=== PATIENT | male | born 1940 | race Caucasian/White ===

== ENCOUNTER → 2022-02-12 | Outpatient (CLI) | payer MEDICARE, SELFPAY ==
--- NOTE | 2022-02-12 08:00 | PROSBIL_PTH ---
PATIENT: RIMA SNYDER LOC: [facility] U#:[id number] AGE/SX: 81/M ROOM: RE02/12/[address]: Dr. Damon Garrett MD : 1940 BED: DIS: 02/12/2022 SPEC #: [id number] RECD: 02/12/22 16:25 STATUS: MIRIAM DEMETRA #: [id number] MIKY: 02/12/22 08:[address]: Damon Garrett DEPT: SURGICAL PATHOLOGY RECD BY: Jacquelyn Winkler ENTERED: 02/13/22 08:20 SP TYPE: PROST BX LY DR: Dr. Ramiro Rangel MD Tissues: A - PROSTATE RIGHT B - PROSTATE RIGHT C - PROSTATE RIGHT D - PROSTATE LEFT E - PROSTATE LEFT F - PROSTATE LEFT Procedures: PROSTATE BX HEADER OPERATION: Prostate biopsy PRE-OP DIAGNOSIS: Elevated PSA TISSUE SUBMITTED: A - Right apex, B - Right mid, C - Right base, D - Left apex, E - Left mid, F - Left base MICROSCOPIC DIAGNOSIS A. Right prostate, apex, core biopsy: Prostatic adenocarcinoma. Radha grade: 3+3=6 Number of cores involved: 1/1 Proportion of tissue involved: ~50% Perineural invasion: Present. Greatest tumor length: 0.5 cm B. Right prostate, mid, core biopsy: Prostatic adenocarcinoma. [place] grade: 3+3=6 Number of cores involved: 1/1 Proportion of tissue involved: ~70% Perineural invasion: Present. Greatest tumor length: 0.7 cm Chronic inflammation. C. Right prostate, base, core biopsy: Prostatic adenocarcinoma. [place] grade: 3+3=6 Number of cores involved: 1/1 Proportion of tissue involved: ~40% Perineural invasion: Present. Greatest tumor length: 0.5 cm Focal high-grade prostatic intraepithelial neoplasia (HGPIN). D. Left prostate, apex, core biopsy: Prostatic adenocarcinoma. [place] grade: 5+3=8. See comment. Number of cores involved: 1/1 Proportion of tissue involved: >95% Perineural invasion: Present. Greatest tumor length: 1.5 cm E. Left prostate, mid, core biopsy: Prostatic adenocarcinoma. Radha grade: 3+4=7 Number of cores involved: 1/1 Proportion of tissue involved: ~90% Perineural invasion: Suspected. Greatest tumor length: 1.3 cm, discontinuous Focal chronic inflammation. F. Left prostate, base, core biopsy: Prostatic adenocarcinoma. [place] grade: 3+3=6 Number of cores involved: 1/1 Proportion of tissue involved: ~25% Perineural invasion: Not identified. Greatest tumor length: 0.3 cm Chronic inflammation. SJ:mau 02/16/2022 COMMENT D. Tertiary pattern 4 is also noted. Case has been reviewed in consultation with Dr. Lewis who concurs with the above diagnosis. IDC:[email or web address] MICROSCOPIC DESCRIPTION Slides are reviewed. GROSS DESCRIPTION A - Received is one container designated prostate, right apex. The specimen consists of one elongated fragment of light forman-white soft tissue measuring 1 cm in length and 0.1 cm in diameter. The specimen is totally submitted in one cassette. B - Received is one container designated prostate, right mid. The specimen consists of one elongated fragment of light forman-white soft tissue measuring 1.1 cm in length and 0.1 cm in diameter. The specimen is totally submitted in one cassette. C - Received is one container designated prostate, right base. The specimen consists of one elongated fragments of light forman-white soft tissue measuring 1.5 cm in length and 0.1 cm in diameter. The specimen is totally submitted in one cassette. D - Received is one container designated prostate, left apex. The specimen consists of one elongated fragments of light forman-white soft tissue measuring 1.8 cm in length and 0.1 cm in diameter. The specimen is totally submitted in one cassette. E - Received is one container designated prostate, left mid. The specimen consists of one elongated fragment of light forman-white soft tissue measuring 1.8 cm in length and 0.1 cm in diameter. The specimen is totally submitted in one cassette. F - Received is one container designated prostate, left base. The specimen consists of one elongated fragment of light forman-white soft tissue measuring 2 cm in length and 0.1 cm in diameter. The specimen is totally submitted in one cassette. / SJ:rg 02/13/2022 TC:0 [facility]: [id number]
== END | disposition home or self-care (01) ==
LOC: LABSPEC 16:50
PROVIDERS: PCP Family Medicine; Visit Provider Urology
DX: R97.20 Elevated prostate specific antigen [PSA] (principal)
CPT/HCPCS: 88305; G0416

== ENCOUNTER → 2022-03-12 | Outpatient (CLI) | payer MEDICARE, SELFPAY ==
--- NOTE | 2022-03-12 09:22 | NM_ITS ---
CLINICAL: Male, 81 years old. Initial staging for high risk prostate cancer WHOLE BODY NUCLEAR BONE SCAN TECHNIQUE: Following the IV administration of 26.9 mCi of Tc MDP, whole body bone imaging was performed with a gamma camera following a three hour delay. COMPARISON STUDIES : NM - None. CR - Not available for review at this time. CT - Not available for review at this time. MR - Not available for review at this time. US - Not available for review at this time. FINDINGS: Mild increased radiopharmaceutical uptake at the level of the thoracic spine suggestive of a degenerative changes. Mild increased uptake is also seen at the level of both knee joints suggestive of degenerative change. NM/Bone Scan Whole Body IMPRESSION: No evidence of bony metastasis. Findings suggestive of degenerative changes involving the thoracic vertebrae as well as both knee joints. Electronically Signed: Roberto Callejas MD at 14:39 EDT ,
== END | disposition home or self-care (01) ==
PROVIDERS: Referring Provider Student in an Organized Health Care Education/Training Program; Visit Provider Student in an Organized Health Care Education/Training Program
DX: C61 Malignant neoplasm of prostate (principal)
CPT/HCPCS: 78306; A9503

== ENCOUNTER → 2022-03-13 | Outpatient (CLI) | payer MEDICARE, SELFPAY ==
--- NOTE | 2022-03-13 13:28 | CT_ITS ---
STUDY: CT ABDOMEN AND PELVIS WITH CONTRAST REASON FOR EXAM: Male, 81 years old. Initial staging for high risk prostate cancer RADIATION DOSAGE (If Supplied By Facility): CTDIvol = ( 22.51 ) mGy, DLP = ( 2276.10 ) mGycm TECHNIQUE: Transaxial images were obtained from the dome of the diaphragm to the symphysis pubis with oral contrast. Oral and amp; IV Readi-CAT and amp; 100mL Isovue-300 was administered. Sagittal and coronal images were reconstructed. Individualized dose optimization techniques were used for this CT. COMPARISON: None. FINDINGS: The visualized lung bases are unremarkable. Coronary artery calcification. There is decreased attenuation of the liver consistent with steatosis. There is a 1 cm cyst in the anterior right lobe of the liver. Normal gallbladder and extrahepatic biliary system. Normal spleen. Normal pancreas. Normal bilateral adrenal glands. There is a 5.5 cm x 4.5 cm cyst in the mid inferior pole of the right kidney. Minimal soft tissue density seen along its posterior dependent portion. Subcentimeters cyst in the anterior aspect of the right kidney. Normal left kidney. Normal visualized stomach. Normal small intestine. There are multiple colonic diverticula consistent with diverticulosis. The appendix is visualized and appears normal. There is diffuse atherosclerotic calcification of the abdominal aorta and its major visceral branches, without a demonstrated aneurysm. Normal inferior vena cava. Normal retroperitoneum. Mild degree of diffuse bladder wall thickening. There is enlargement of the prostate gland. The prostate measures 4.7 cm x 4.3 cm. This causes indentation of the bladder base. Normal abdominal wall. There are diffuse degenerative changes of the visualized lumbar spine. Degenerative changes of the sacroiliac joints. CT/Abdomen/Pelvis WITH Contrast IMPRESSION: Diffuse fatty liver. Hepatic cyst. Right renal cysts. Prostatic enlargement with indentation at the bladder base. Electronically Signed: Roberto Callejas MD at 13:55 EDT ,
[2022-03-13 13:41] LABS: CREATININE FINGERSTICK < 0.9 mg/dL (0.70-1.30); EGFR FINGERSTICK > 60.0000 mL/min (>60)
== END | disposition home or self-care (01) ==
LOC: CT 12:53
PROVIDERS: Referring Provider Student in an Organized Health Care Education/Training Program; Visit Provider Student in an Organized Health Care Education/Training Program
DX: Z01.812 Encounter for preprocedural laboratory examination (principal); C61 Malignant neoplasm of prostate
CPT/HCPCS: 74177; Q9967; A4216

== ENCOUNTER 2022-04-10 10:12 | Day surgery (SDC) | payer MEDICARE, SELFPAY ==
[2022-04-10 10:40] VITALS: BP 166/64; PULSE 66; RESP 16; TEMP 36.4; O2SAT 100; BMI 27.7
[2022-04-10] MEDS: Lactated Ringers 1,000 ML 15 ML IV (10:47)
[2022-04-10] MEDS: Cefazolin 2 GM in 0.9% Normal Saline 100 ML IV (11:47)
--- NOTE | 2022-04-10 12:15 | PCM.HP.STD ---
HPI - General General Date of Service: 04/10/22 Chief Complaint: Prostate cancer HPI Narrative RIMA SNYDER, is a 81 M who presents for placement of spacer gel and gold markers for treatment of prostate cancer PFSH Medical History (Updated 04/06/22 @ 12:24 by Mary Anne Lucia) Alcohol use Back injury Former smoker Heartburn High cholesterol Lead poisoning Prostate disease Wears dentures Home Medications calcium carbonate 600 mg-vitamin D3 12.5 mcg (500 unit) capsule (Calcium 600 with Vitamin D3) 3 cap PO DAILY supplement 03/05/22 [History Last Taken Unknown] ciprofloxacin HCl 500 mg tablet 2 tab PO DAILY preOp 04/06/22 [History Last Taken Unknown] ciprofloxacin HCl 500 mg tablet (Cipro) 500 mg PO BID #14 tabs 04/10/22 [Rx Last Taken Unknown] Allergy/AdvReac Type Severity Reaction Status Date / Time No Known Allergies Allergy Verified 04/10/22 10:45 Surgical History (Updated 04/06/22 @ 12:24 by Mary Anne Lucia) H/O removal of cyst History of cataract extraction History of colonoscopy History of removal of cyst Social History (Updated 03/05/22 @ 15:11 by Ingrid Abraham) housing: house current occupational status: retired pets and animals: Yes pets and animals: dog(s) Smoking Status: Former smoker pack-years: 1 Tobacco: How many years used: 15 alcohol intake: current alcohol intake frequency: 3 or more drinks per day Alcohol type: beer and hard liquor Vital Signs Vital Signs Vital Signs: 04/10/22 10:40 04/10/22 10:40 Temperature 97.5 F L Temperature Source Temporal Pulse Rate 66 Respiratory Rate 16 Respiratory Pattern Normal Blood Pressure 166/64 H Blood Pressure Mean 98 Blood Pressure Source Monitor Blood Pressure Position Semi-Fowlers Blood Pressure Location Right Arm Pulse Ox 100 Oxygen Delivery Method Room Air Weight Weight: 95.254 kg Body Mass Index (BMI) 27.7
--- NOTE | 2022-04-10 12:16 | OP.PCM_ITS ---
Report of Operation Date of Procedure: 04/10/22 Pre-Operative Diagnosis: Prostate cancer Post-Operative Diagnosis: Same Surgery/Procedure Performed:: Spacer organ at risk gel matrix, and lane marker installer placement. Description of Surgical Findings:: Patient was taken back to the operating room after smooth induction of anesthesia he was placed supine on the table. The genitals and perineum were prepped and draped in usual sterile fashion. I then introduced a biplanar ultrasound probe into the rectum and performed ultrasonography and identified the Denonvilliers' fascia the prostate mid base and apex and seminal vesicles. The spacer gel mix was then prepared on the back table per manufactures instruction. Under ultrasound guidance in the midline perineum a bevel needle down we advanced through the perineum below the prostate into the space of Denonvilliers' fascia. This space which could be identified by ultrasound with a bright white layer between the prostate and the rectum. I then injected a puff of normal saline to identify the space further. After I confirmed that the needle was in the correct space in the mid prostate and the space of Denonvilliers' fascia between the rectum and the prostate. Then over the course of 15 seconds the gel matrix was injected slowly there was nice separation between the prostate and the rectum at the gel matrix was injected. The position of the gel matrix was confirmed by ultrasound. Then the injection needle was removed intact. The penis and testicles were prepped and draped in usual sterile fashion, ultrasound probe was placed into the rectum and biplanar ultrasound was pe rformed on the prostate. Identified the base mid and apex of the prostate identified the transition zone prostate. Then using a needle the first lane marker installer was placed into the right base of the prostate, the second lane marker installer was placed in the left base of the prostate, and the third core marker was placed in the right apex of the prostate after all 3 markers were placed the placement of the markers were confirmed by ultrasonographyPatient's perineum was cleaned patient was taken out of stirrups and then taken back to the PACU in good condition. . Surgeon: Damon Garrett Type of Anesthesia: General
--- NOTE | 2022-04-10 12:16 | DCINST_ITS ---
Discharge Instructions Diet Discharge Diet: No restrictions and Light diet - advance as tolerated Activity Discharge Activity: Return to Normal Activity and No Restrictions Follow Up Care Test Results: Test results from this visit will be discussed in further detail at your follow- up appointment, if applicable. Discharge Plan Admission Primary Reason for Your Visit: placement of markers and spacer gel Attending Provider: Damon Garrett Primary Care Provider: Ramiro Rangel Discharge Orders/Prescriptions Prescriptions: New ciprofloxacin HCl [Cipro] 500 mg tablet 500 mg PO BID Qty: 14 0RF No Action calcium carbonate-vitamin D3 [Calcium 600 with Vitamin D3] 600 mg-12.5 mcg (500 unit) capsule 3 cap PO DAILY ciprofloxacin HCl 500 mg tablet 2 tab PO DAILY Label Comments: take 1 tablet by mouth twice a day Referrals / Follow Up: Ramiro Rangel MD [Primary Care Provider] - Damon Garrett MD [Med Staff - Active Staff] - Disposition Disposition (needs filled in before D/C Order can be placed): Home, Self Care
[2022-04-10 12:21] VITALS: BP 136/76; BP 166/64; PULSE 72; RESP 16; TEMP 36.2; O2SAT 96
[2022-04-10 12:30] VITALS: BP 144/72; BP 166/64; PULSE 63; RESP 16; O2SAT 97
[2022-04-10 12:45] VITALS: BP 130/62; BP 166/64; PULSE 55; RESP 16; O2SAT 96
[2022-04-10 13:00] VITALS: BP 132/66; BP 166/64; PULSE 59; RESP 16; TEMP 36.6; O2SAT 97
[2022-04-10 13:48] VITALS: BP 166/64
== END 2022-04-10 13:52 | disposition home or self-care (01) ==
LOC: SDC 10:19 → AC 10:21
PROVIDERS: PCP Family Medicine; Visit Provider Urology
PROC: (CPT 55874; principal; 2022-04-10 12:05)
DX: C61 Malignant neoplasm of prostate (principal); N40.1 Benign prostatic hyperplasia with lower urinary tract symptoms; E78.00 Pure hypercholesterolemia, unspecified; F32.A Depression, unspecified; F41.9 Anxiety disorder, unspecified; Z79.899 Other long term (current) drug therapy; Z87.891 Personal history of nicotine dependence
CPT/HCPCS: 55874; 55876; 00902; J7120; J2405

== ENCOUNTER → 2022-04-16 | Outpatient (CLI) | payer MEDICARE, SELFPAY ==
--- NOTE | 2022-04-16 12:25 | MRI_ITS ---
STUDY: MR PELVIS WITH AND WITHOUT CONTRAST (PROSTATE) REASON FOR EXAM: Male, 81 years old. High risk prostate cancer, radiation planning TECHNIQUE: Standardized multiparametric prostate MRI with T1, T2, DWI/ADC sequences were obtained in 3 orthogonal planes, and dynamic contrast enhancement sequences. ml of 20 cc dotarem contrast material was administered intravenously for the contrast portion of the examination. . COMPARISON: None. FINDINGS: The prostate volume measures 48 mm3. The contours of the prostate gland are lobulated. There is mass effect on the bladder base. The transition zone is heterogenous. PI-RADS DWI score 3 - Focal mildly hypointense on ADC and isointense/mildly hyperintense on high b-value DWI. PI-RADS T2W score 4 - Non-circumscribed, homogeneous, moderately hypointense, and <1.5 cm in greatest dimension in the right prostate base. Contrast enhancement no early or contemporaneous enhancement; or diffuse multifocal enhancement NOT corresponding to a focal finding on T2W and/or DWI or focal ehancement responding to a lesion demonstrating features of BPH onT2WI (including features of extruded BPH in the PZ). The peripheral zone is homogenous. PI-RADS DWI score 2 - Linear/wedge shaped hypointense on ADC and/or linear/wedge shaped hyperintense on high b-value DWI. PI-RADS T2W score 2 - Linear, wedge-shaped, or diffuse mild hypointensity, usually with indistinct margin. Contrast enhancement no early or contemporaneous enhancement; or diffuse multifocal enhancement NOT corresponding to a focal finding on T2W and/or DWI or focal enhancement responding to a lesion demonstrating features of BPH onT2WI (including features of extruded BPH in the PZ). The seminal vesicles demonstrate normal margins and T2 signal pattern. No mass lesion or invasion depicted. The rectoprostatic angles are normal. Trabeculated urinary bladder wall. The vascular structures of the are normal. The visualized hollow viscus structures are normal. No bone marrow edema or mass lesion depicted. MRI/Pelvis W/WO Contrast IMPRESSION: 1. PIRADS v2.1 2019 -- 4 - High (clinically significant cancer is likely). 2. No extraprostatic mass or pelvic adenopathy. Electronically Signed: Gilbert Cheatham MD (Brooks) at 16:25 EDT Reading Location ID and State: [facility] / [place] , Service support ,
[2022-04-16 13:05] LABS: CREATININE FINGERSTICK 0.9 mg/dL (0.70-1.30); EGFR FINGERSTICK > 60.0000 mL/min (>60)
== END | disposition home or self-care (01) ==
PROVIDERS: Referring Provider Student in an Organized Health Care Education/Training Program; Visit Provider Student in an Organized Health Care Education/Training Program
DX: C61 Malignant neoplasm of prostate (principal)
CPT/HCPCS: 72197; 77014; 77290; A9575

== ENCOUNTER 2022-09-17 09:51 | Day surgery (SDC) | payer MEDICARE, SELFPAY ==
[2022-09-17] VITALS (7 sets, daily range): BP systolic 97–164; BP diastolic 53–83; PULSE 70–95; RESP 14–18; TEMP 36.1–36.9; O2SAT 94–100; BMI 28.0
[2022-09-17] MEDS: Lactated Ringers 1,000 ML 15 ML IV (10:32)
--- NOTE | 2022-09-17 10:45 | PCM.HP.BLA ---
History and Physical Date of Admission: 09/17/22 RIMA SNYDER, is a 82 M who presents to the office today for referred by radiation oncologist Dr Benjamin for rectal bleeding that occurred during his radiation therapy for high risk prostate cancer. He completed radiation therapy in early May 2022. He had diarrhea during the therapy, and some bright red blood per rectum. He report hx of external hemorrhoid that disappeared after placement of spacer organ at risk gel matrix and gold markers in 03/2022. Pt reports the diarrhea has resolved, and he hasn't had any further blood per rectum. No melena. No constipation. His last colonoscopy 20+ yrs ago, recalls having a polyp. Denies nausea, vomiting, dysphagia, heartburn, acid reflux, abd pain. ROS Const Constitutional: No fatigue ENT ENT: No difficulty swallowing Gastro GI: Positive for diarrhea and heartburn; No abdominal pain, belching, bloating, change in bowel habits, change in stool character, coffee ground emesis, constipation, cramping, difficulty swallowing, feeling full early, excessive flatus, incontinent of stools, Vomiting blood/hematemesis, Blood in stool, loose stools, Black,tarry stools, nausea/dyspepsia, pain with swallowing, vomiting or other Musc Musculoskeletal: Positive for back pain and Arthritis; No joint pain Skin Skin: No yellowing of the eye or itchy eyes Psych Psychiatric: Positive for anxiety and No depression Endo Endocrine: No fatigue Aller/Imm Allergy/Immunologic: No itchy eyes Theodore/Lymp Hematologic/Lymphatic: No easy bleeding or easy bruising Exam Const General: cooperative and comfortable Nutritional Appearance: overweight Orientation: alert, awake and oriented x3 Eyes Sclera: sclerae normal Resp Effort & Inspection: normal respiratory effort GI Inspection: obesity Palpation: soft, no masses and nontender Quality Reporting Tobacco Screening ([facility] 138) Smoking Status: Former smoker Assessment and Plan Assessment and Plan (1) Blood in stool: ?Status:?Acute ?Plan: 82 yr old male with hx of blood per rectum while having diarrhea during radiation therapy for high risk prostate cancer. He completed XRT, diarrhea and blood per rectum have resolved. He remains on ADT. We will schedule him for colonoscopy with Dr Bro w/ office f/u 2 wks later. I have examined the patient and the H&P has been reviewed. There are no clinical changes since date of exam.
--- NOTE | 2022-09-17 11:00 | EGD_PTH ---
PATIENT: RIMA SNYDER LOC: EN U#:[id number] AGE/SX: 82/M ROOM: RE09/17/[address]: Dr. Orestes Bro DO : 1940 BED: DIS: 09/17/2022 SPEC #: [id number] RECD: 09/17/22 15:17 STATUS: MIRIAM RESuman #: [id number] MIKY: 09/17/22 11:[address]: Orestes Bro DEPT: SURGICAL PATHOLOGY RECD BY: Jacquelyn Winkler ENTERED: 09/18/22 09:35 SP TYPE: EGD BIOPSY OT DR: Dr. Neal Mariscal DO Tissues: A - Duodenum, NOS B - Esophagus, NOS Procedures: Special Stain Group II Surgery Specimen Level IV Alcian Blue/PAS (control) HEADER OPERATION: [place] [place] PRE-OP DIAGNOSIS: Blood in stool TISSUE SUBMITTED: A ? Duodenal polyp biopsy, B ? Distal esophagus biopsy MICROSCOPIC DIAGNOSIS A. Duodenal polyp, biopsy: Polypoid gastric metaplasia. Minimal chronic inflammation. B. Distal esophagus, biopsy: Gastroesophageal junctional mucosa with mild chronic inflammation. No evidence of goblet cell metaplasia. See comment. AM:mau 09/21/2022 COMMENT B. Alcian blue/PAS stain with matched control supports the above diagnosis. MICROSCOPIC DESCRIPTION Slides are reviewed. GROSS DESCRIPTION A - Received in fixative is one container labeled with the patient's name and designated duodenal polyp biopsy. The specimen consists of two irregular fragments of light forman soft tissue that in aggregate measure 0.9 x 0.5 x 0.1 cm. The specimen is totally submitted in one cassette. B - Received in fixative is one container labeled with the patient's name and designated distal esophagus biopsy. The specimen consists of multiple irregular fragments of light forman soft tissue that in aggregate measure 1 x 0.5 x 0.1 cm. The specimen is totally submitted in one cassette. / SJ:mau 09/18/2022 TC:3 CPT: 22568 x2, 49421
--- NOTE | 2022-09-17 11:24 | OP.EGD_ITS ---
Patient Name: Abraham Grace Procedure Date: 09/17/2022 10:46 AM Date of : 1940 Age: 82 Procedure: Upper GI endoscopy Indications: Acute post hemorrhagic anemia Providers: Orestes Bro DO Medicines: Monitored Anesthesia Care Patient Profile: This is an 82 year old male. Refer to note in patient chart for documentation of history and physical. Patient has symptoms of acute heartburn. Complications: No immediate complications. Procedure: Pre-Anesthesia Assessment: - Prior to the procedure, a History and Physical was performed, and patient medications and allergies were reviewed. The patient is competent. The risks and benefits of the procedure and the sedation options and risks were discussed with the patient. All questions were answered and informed consent was obtained. Patient identification and proposed procedure were verified by the physician in the pre-procedure area. Mental Status Examination: alert and oriented. Airway Examination: normal oropharyngeal airway and neck mobility. Respiratory Examination: clear to auscultation. CV Examination: normal. Prophylactic Antibiotics: The patient does not require prophylactic antibiotics. Prior Anticoagulants: The patient has taken no previous anticoagulant or antiplatelet agents. ASA Grade Assessment: II - A patient with mild systemic disease. After reviewing the risks and benefits, the patient was deemed in satisfactory condition to undergo the procedure. The anesthesia plan was to use monitored anesthesia care (MAC). Immediately prior to administration of medications, the patient was re-assessed for adequacy to receive sedatives. The heart rate, respiratory rate, oxygen saturations, blood pressure, adequacy of pulmonary ventilation, and response to care were monitored throughout the procedure. The physical status of the patient was re-assessed after the procedure. After obtaining informed consent, the endoscope was passed under direct vision. Throughout the procedure, the patient's blood pressure, pulse, and oxygen saturations were monitored continuously. The pediatric colonoscope was introduced through the mouth, and advanced to the second part of duodenum. The upper GI endoscopy was accomplished without difficulty. The patient tolerated the procedure well. Scope In: 10:58:17 AM Scope Out: 11:02:29 AM Total Procedure Duration Time 0 hours 4 minutes 12 seconds Findings: LA Grade A (one or more mucosal breaks less than 5 mm, not extending between tops of 2 mucosal folds) esophagitis with no bleeding was found 35 to 37 cm from the incisors. Biopsies were taken with a cold forceps for histology. Biopsies were taken with a cold forceps for histology. Verification of patient identification for the specimen was done. Estimated blood loss was minimal. A moderate Schatzki ring was found in the lower third of the esophagus. A guidewire was placed and the scope was withdrawn. Dilation was performed with a Savary dilator with no resistance at 45 Fr. The dilation site was examined and showed moderate improvement in luminal narrowing. Estimated blood loss was minimal. A medium-sized hiatal hernia was present. No gross lesions were noted in the stomach. The cardia and gastric fundus were normal on retroflexion. A single 5 mm sessile polyp was found in the duodenal bulb. The polyp was removed with a cold snare. Resection and retrieval were complete. Verification of patient identification for the specimen was done. Estimated blood loss was minimal. Impression: - LA Grade A reflux esophagitis. Biopsied. - Moderate Schatzki ring. Dilated. - Medium-sized hiatal hernia. - No gross lesions in the stomach. - A single duodenal polyp. Resected and retrieved. Recommendation: - Discharge patient to home. - Resume previous diet. - Continue present medications. - Await pathology results. Procedure Code(s): --- Professional --- 99872, Esophagogastroduodenoscopy, flexible, transoral; with removal of tumor(s), polyp(s), or other lesion(s) by snare technique 35526, Esophagogastroduodenoscopy, flexible, transoral; with insertion of guide wire followed by passage of dilator(s) through esophagus over guide wire 23651, 59,51, Esophagogastroduodenoscopy, flexible, transoral; with biopsy, single or multiple CPT copyright 2017 [employer]. All rights reserved. The codes documented in this report are preliminary and upon industrial engineering professor review may be revised to meet current compliance requirements. Orestes Bro DO 09/17/2022 11:23:27 AM This report has been signed electronically. Number of Addenda: 0 Note Initiated On: 09/17/2022 10:46 AM
--- NOTE | 2022-09-17 11:27 | OP.COLON_ITS ---
Patient Name: Abraham Grace Procedure Date: 09/17/2022 11:02 AM Date of : 1940 Age: 82 Procedure: Colonoscopy Indications: Hematochezia Providers: Orestes Bro DO Medicines: Monitored Anesthesia Care Patient Profile: This is an 82 year old male. Refer to note in patient chart for documentation of history and physical. Patient has symptoms of acute heartburn. Last Colonoscopy: more than 10 years ago. Complications: No immediate complications. Procedure: Pre-Anesthesia Assessment: - Prior to the procedure, a History and Physical was performed, and patient medications and allergies were reviewed. The patient is competent. The risks and benefits of the procedure and the sedation options and risks were discussed with the patient. All questions were answered and informed consent was obtained. Patient identification and proposed procedure were verified by the physician in the pre-procedure area. Mental Status Examination: alert and oriented. Airway Examination: normal oropharyngeal airway and neck mobility. Respiratory Examination: clear to auscultation. CV Examination: normal. Prophylactic Antibiotics: The patient does not require prophylactic antibiotics. Prior Anticoagulants: The patient has taken no previous anticoagulant or antiplatelet agents. ASA Grade Assessment: II - A patient with mild systemic disease. After reviewing the risks and benefits, the patient was deemed in satisfactory condition to undergo the procedure. The anesthesia plan was to use monitored anesthesia care (MAC). Immediately prior to administration of medications, the patient was re-assessed for adequacy to receive sedatives. The heart rate, respiratory rate, oxygen saturations, blood pressure, adequacy of pulmonary ventilation, and response to care were monitored throughout the procedure. The physical status of the patient was re-assessed after the procedure. After I obtained informed consent, the scope was passed under direct vision. Throughout the procedure, the patient's blood pressure, pulse, and oxygen saturations were monitored continuously. The colonoscope was introduced through the anus and advanced to the terminal ileum. The colonoscopy was performed without difficulty. The patient tolerated the procedure well. The quality of the bowel preparation was adequate. Scope In: 11:04:35 AM Scope Withdrawal Time 0 hours 6 minutes 57 seconds Scope Out: 11:14:29 AM Total Procedure Duration Time 0 hours 9 minutes 54 seconds Findings: Hemorrhoids were found on perianal exam. Non-bleeding internal hemorrhoids were found during retroflexion. The hemorrhoids were mild and Grade II (internal hemorrhoids that prolapse but reduce spontaneously). Multiple small and large-mouthed diverticula were found in the entire colon. The exam was otherwise without abnormality on direct and retroflexion views. Impression: - Hemorrhoids found on perianal exam. - Non-bleeding internal hemorrhoids. - Diverticulosis in the entire examined colon. - The examination was otherwise normal on direct and retroflexion views. - No specimens collected. Recommendation: - Discharge patient to home. - Resume previous diet. - Continue present medications. - No repeat colonoscopy due to age. Procedure Code(s): --- Professional --- 09662, Colonoscopy, flexible; diagnostic, including collection of specimen(s) by brushing or washing, when performed (separate procedure) CPT copyright 2017 [employer]. All rights reserved. The codes documented in this report are preliminary and upon certified coder review may be revised to meet current compliance requirements. Orestes Bro DO 09/17/2022 11:26:58 AM This report has been signed electronically. Number of Addenda: 0 Note Initiated On: 09/17/2022 11:02 AM
== END 2022-09-17 12:17 | disposition home or self-care (01) ==
LOC: EN 09:59 → AC 10:00
PROVIDERS: Referring Provider Internal Medicine Gastroenterology; Visit Provider Internal Medicine Gastroenterology
PROC: 0DJD8ZZ Inspection of Lower Intestinal Tract, Via Natural or Artificial Opening Endoscopic (ICD-10-PCS; CPT 45378; principal; 2022-09-17 10:55)
DX: K22.2 Esophageal obstruction (principal); K31.7 Polyp of stomach and duodenum; K21.00 Gastro-esophageal reflux disease with esophagitis, without bleeding; K44.9 Diaphragmatic hernia without obstruction or gangrene; K64.1 Second degree hemorrhoids; K57.30 Diverticulosis of large intestine without perforation or abscess without bleeding; Z87.891 Personal history of nicotine dependence; Z86.010 Personal history of colon polyps
CPT/HCPCS: 43248; 43251; 43239; 45378; 88305; 88313; J7120; J2405

== ENCOUNTER → 2022-09-21 | Outpatient (CLI) | payer MEDICARE, SELFPAY ==
[2022-09-21 11:20] LABS: PSA,Total- Diagnostic < 0.01 ng/mL (0.0-4.0)
== END | disposition home or self-care (01) ==
PROVIDERS: Referring Provider Urology; Visit Provider Urology
DX: C61 Malignant neoplasm of prostate (principal)
CPT/HCPCS: 36415; 84153

== ENCOUNTER → 2023-03-30 | Outpatient (CLI) | payer MEDICARE, SELFPAY ==
[2023-03-30 14:12] LABS: PSA,Total- Diagnostic < 0.01 ng/mL (0.0-4.0)
== END | disposition home or self-care (01) ==
PROVIDERS: Referring Provider Urology; Visit Provider Urology
DX: C61 Malignant neoplasm of prostate (principal)
CPT/HCPCS: 36415; 84153

== ENCOUNTER → 2023-07-05 | Outpatient (CLI) | payer MEDICARE, SELFPAY ==
[2023-07-05 13:29] LABS: PSA,Total- Diagnostic < 0.01 ng/mL (0.0-4.0)
== END | disposition home or self-care (01) ==
LOC: LAB 12:28
PROVIDERS: Referring Provider Nurse Practitioner; Visit Provider Nurse Practitioner
DX: C61 Malignant neoplasm of prostate (principal)
CPT/HCPCS: 36415; 84153

== ENCOUNTER → 2023-09-30 | Outpatient (CLI) | payer MEDICARE, SELFPAY ==
[2023-09-30 13:10] LABS: PSA,Total- Diagnostic < 0.01 ng/mL (0.0-4.0)
== END | disposition home or self-care (01) ==
LOC: LAB 12:16
PROVIDERS: Referring Provider Nurse Practitioner; Visit Provider Nurse Practitioner
DX: C61 Malignant neoplasm of prostate (principal)
CPT/HCPCS: 36415; 84153

== ENCOUNTER → 2024-03-07 | Outpatient (CLI) | payer MEDICARE, SELFPAY ==
--- NOTE | 2024-03-07 10:15 | RAD_ITS ---
STUDY: X-RAY - LUMBAR SPINE REASON FOR EXAM: Male, 83 years old. Low back pain, unspecified TECHNIQUE: 5 view(s) of the lumbar spine were obtained. COMPARISON: None FINDINGS: Normal lumbar lordosis. There is no substantial scoliosis. There is a normal alignment of the vertebrae. 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 There is multi-level degenerative disc disease with multi-level disc space narrowing. Multilevel facet hypertrophy in the lumbar spine. The soft tissue structures are unremarkable. RAD/L/S Spine Min 4 Views IMPRESSION: Degenerative changes of the spine, as detailed above. MRI may be useful. Electronically Signed: Papo Barrera MD at 12:52 EDT ,
[2024-03-07 10:42] LABS: Hematocrit 42.1 % (40-54); Hemoglobin 13.4 g/dL (13.0-16.5); Mean Corp Hgb Conc 31.8 g/dL (32-36); Mean Corpuscular Hgb 28.4 pg (27.0-32.0); Mean Corpuscular Volume 89.2 fL (80-94); Mean Platelet Vol. 11.8 fl (6.2-12.0); Platelet Count 163 K/mm3 (150-450); RBC Distribution Width CV 14.5 % (11.6-14.6); RBC Distribution Width SD 46.6 fl (35.1-43.9); Red Blood Count 4.72 M/mm3 (4.6-6.2); White Blood Count 4.6 K/mm3 (4.4-11.0)
[2024-03-07 11:29] LABS: ALB/GLOB Ratio 1.2 RATIO (0.9-2.4); AST(SGOT) 26 U/L (15-37); Alanine Aminotransfer ALT/SGPT 35 U/L (16-61); Albumin, Serum 3.6 g/dL (3.2-5.0); Alkaline Phosphatase 87 U/L (45-117); Anion Gap 6 (5-15); BUN 15 mg/dL (7-18); BUN/Creat Ratio 17.3 RATIO (10-20); Calcium,Total 9.5 mg/dL (8.5-10.1); Chloride 105 mmol/L (98-107); Creatinine, Serum 0.86 mg/dL (0.70-1.30); EST Glomerular Filtration Rate 90 mL/min (>60); Est Glom Filt Rate - Afr Amer 109 mL/min (>60); Glucose 115 mg/dL (74-106); Protein, Total 6.6 g/dL (6.4-8.2); Sodium Level 139 mmol/L (136-145)
== END | disposition home or self-care (01) ==
PROVIDERS: Referring Provider Nurse Practitioner Family; Visit Provider Nurse Practitioner Family
DX: C61 Malignant neoplasm of prostate (principal); N41.9 Inflammatory disease of prostate, unspecified; M54.50 Low back pain, unspecified; R29.898 Other symptoms and signs involving the musculoskeletal system
CPT/HCPCS: 36415; 72110; 80053; 85027

== ENCOUNTER → 2024-04-04 | Outpatient (CLI) | payer MEDICARE, SELFPAY ==
[2024-04-04 11:51] LABS: PSA,Total- Diagnostic < 0.01 ng/mL (0.0-4.0)
== END | disposition home or self-care (01) ==
LOC: LAB 10:27
PROVIDERS: Referring Provider Nurse Practitioner; Visit Provider Nurse Practitioner
DX: C61 Malignant neoplasm of prostate (principal)
CPT/HCPCS: 36415; 84153

== ENCOUNTER → 2025-01-23 | Outpatient (CLI) | payer MEDICARE, SELFPAY ==
[2025-01-23 16:04] LABS: PSA,Total- Diagnostic < 0.02 ng/mL (0.00-4.00)
== END | disposition home or self-care (01) ==
LOC: LAB 13:56
PROVIDERS: Referring Provider Urology; Visit Provider Urology
DX: C61 Malignant neoplasm of prostate (principal)
CPT/HCPCS: 36415; 84153

== ENCOUNTER → 2025-01-31 | Outpatient (CLI) | payer MEDICARE, SELFPAY ==
--- OUTSIDE RECORDS SUMMARY | 2025-01-31 06:13 | XMS RPT_ITS | CCD ---
Author Organization [facility] CliniSymo Care Team Providers Care Professional Driver Name Role Phone STIVEN RANGEL MD Primary Care Physician [phone] Dr. Jerome Benjamin Attending Provider Dr. Damon Garrett Referring Provider Dr. Stiven Rangel Primary Care Provider Dr. Jerome Benjamin Referring Provider Dr. Stiven Rangel Primary Care Provider Dr. Stiven Rangel Referring Provider [phone] Dr. Jerome Benjamin Attending Provider Dr. Jerome Benjamin Referring Provider Jasmin CARR, JAIRON Huddleston Attending Provider [phone] Carlisle Attending Provider [phone] Dr. Orestes Bro Referring Provider FriendDr. Carlisle Other Provider Dr. Lamberto Mckeon Primary Care Provider [phone] Dr. Stiven Rangel Primary Care Provider Dr. Jerome Benjamin Attending Provider [phone] Dr. Jerome Benjamin Referring Provider [phone] Dr. Stiven Rangel Referring Provider [phone] LAMBERTO MCKEON DO Primary Care Physician Dr. Jerome Benjamin Attending Provider Dr. Lamberto Mckeon Primary Care Provider [phone] Dr. Lamberto Mckeon Primary Care Provider Dr. Lamberto Mckeon Referring Provider [phone] Dr. Jerome Benjamin Attending Provider LAMBERTO MCKEON DO Attending Unavailable LAMBERTO MCKEON DO Primary Care Unavailable DEEDEE TRENCH P[employer] LAYER - HANG, PAPO Mcintosh Attending U navailable LINDA HUNT, LAMBERTO Santamaria Primary Care Unavailable LAMBERTO MCKEON DO Primary Care Unavailable LAMBERTO MCKEON DO Attending Unavailable LAMBERTO MCKEON DO Attending Unavailable LINDA UHNT, LAMBERTO E Primary Care Unavailable LAMEBRTO MCKEON DO E Attending Unavailable LAMBERTO MCKEON DO Primary Care Unavailable Linda HUNT, Dr. De Jesus Primary Care Provider [phone] Dr. Lamberto Mckeon DO Referring Provider [phone] Dr. Jerome Benjamin DO Attending Provider Dr. Jerome Benjamin DO Referring Provider Tami HOWARD, Dr. Damon Sapp Attending Provider Tami HOWARD, Dr. Damon Sapp Referring Provider Deedee PLANER STONE, Papo Aleman Attending Unav jesseable Deedee PLANER STONE, Papo Aleman Referring Unav ailable Lamberto Mckeon Primary Care Unavailable Dmaon Garrett Attending Unavailable Lamberto Mckeon Primary Care Unavailable Damon Garrett Referring Unavailable Lamberto Mckeon Attending Unavailable Lamberto Mckeon Referring Unavailable Lamberto Mckeon Primary Care Unavailable Lamberto Mckeon Consulting Unavailable Jerome Benjamin Attending Unavailable Jerome Benjamin Referring Unavailable Lamberto Mckeon Primary Care Unavailable Jerome Benjamin Attending Unavailable Lamberto Mckeon Referring Unavailable Lamberto Mckeon Primary Care Unavailable Jerome Benjamin Attending Unavailable Lamberto Mckeon Referring Unavailable Lamberto Mckeon Primary Care Unavailable RaleighFabiola Attending Unavailable Fabiola Tomlin Referring Unavailable Lamberto Mckeon Primary Care Unavailable Medications Current Medications Medication Drug Class(es) Dates Sig (Normalized) Sig (Original) calcium carbonate 1500 mg / cholecalciferol 500 unt oral capsule (8 sources) Vitamin D Start: 03-05-2022 Calcium Carbonate-Vitamin D3 (Calcium 600 With Vitamin D3) 600 mg-12.5 mcg (500 unit) capsule Active 2 NMA PO DAILY March 05, 2022 12:00am Start: 03-05-2022 Calcium Carbon ate-Vitamin D3 (Calcium 600 With Vitamin D3) 600 mg-12.5 mcg (500 unit) capsule Active CAP PO March 05, 2022 12:00am calcium gluconate 650 mg oral tablet (6 sources) Start: 06-30-2022 calcium gluconate 650 mg oral tablet Dose : 650 mg = 1 tab(s), Oral, BID, # 100 tab(s), 0 Refill(s) Start Date: 06/30/22 Status: Ordered Quantity: 100.0 Unit: tab(s) Repeat number: 1 ciprofloxacin 500 mg oral tablet (4 sources) Quinolone Antimicrobial Start: 04-10-2022 take 1 tablet by mouth twice daily Ciprofloxacin Hcl (Cipro) 500 mg tablet Active 500 MG PO TWICE A DAY April 10, 2022 12:00am Start: 04-06-2022 take 2 tablets by mo uth once daily Ciprofloxacin Hcl Active 2 TABLET PO DAILY April 06, 2022 12:00am 24 hr diclofenac sodium 100 mg extended release oral tablet (4 sources) Nonsteroidal Anti-inflammatory Drug Start: 10-29-2024 diclofenac sodium 100 mg oral tablet, extended release Dose : 100 mg = 1 tab(s), Oral, qDay, PRN as needed for arthritis, # 100 tab(s), 0 Refill(s), Pharmacy: [facility], Low back pain, 185.3, cm, 06/02/24 15:06:00 EDT, Height, kg, 06/02/24 15:06:00 EDT, Dosing Weight Start Date: 10/29/24 Status: Ordered Quantity: 100.0 Unit: tab(s) Repeat number: 1 Indications: Low back pain, unspecified; Start: 03-09-2024 End: 04-06-2024 diclofenac sodium 100 mg ora l tablet, extended release Dose : 100 mg = 1 tab(s), Oral, qDay, PRN as needed for arthritis, # 90 tab(s), 0 Refill(s), Pharmacy: [facility], Low back pain, 183, cm, 03/09/24 14:29:00 EDT, Height, kg, 03/09/24 14:29:00 EDT, Dosing Weight Start Date: 03/09/24 Stop Date: 04/06/24 Status: Ordered esomeprazole 40 mg delayed release oral capsule (11 sources) Proton Pump Inhibitor Start: 03-09-2024 End: 05-28-2025 esomeprazole 40 mg oral delayed release capsule Dose : 40 mg = 1 cap(s), Oral, qDay, # 90 cap(s), 3 Refill(s), Pharmacy: [facility], 185.3, cm, 06/02/24 15:06:00 EDT, Height, kg, 06/02/24 15:06:00 EDT, Dosing Weight Start Date: 06/02/24 Stop Date: 05/28/25 Status: Ordered Quantity: 90.0 Unit: cap(s) Repeat number: 4 Start: 06-30-2022 take 1 capsule by [facility] once daily as needed Esomeprazole Magnesium 20 mg capsule,delayed release(DR/EC) Active 20 mg PO DAILY as needed for upset stomach July 22, 2022 1:00am fluticasone propionate 0.05 mg/actuat metered dose nasal spray (2 sources) Corticosteroid Start: 10-28-2022 take 1 dose nasal route twice daily Flonase 50 mcg/inh nasal spray Dose = 1 spray(s), Nostril, each, BID, # 16 gram(s), 0 Refill(s), Pharmacy: [id number], Ear congestion, 185, cm, 10/28/22 13:32:00 EST, Height Start Date: 10/28/22 Status: Ordered sertraline 25 mg oral tablet (7 sources) Serotonin Reuptake Inhibitor Start: 12-11-2021 take 1 tablet by mouth once daily as needed for anxiety Sertraline 25 mg tablet Active 25 mg PO DAILY as needed for Anxiety July 22, 2022 1:00am Completed/Discontinued Medications Medication Drug Class(es) Dates Sig (Normalized) Sig (Original) loperamide hydrochloride 2 mg oral capsule (5 sources) Opioid Agonist Start: 05-13-2022 End: 07-06-2023 take 4 capsules by mouth every twenty-four hours as needed for diarrhea Loperamide 2 mg capsule Discontinued 2 mg PO Q4H as needed for Diarrhea May 13, 2022 12:00am July 06, 2023 3:16pm administer after each loose stool until symptoms controlled; do not exceed 8 mg per 24 hrs Start: 05-13-2022 End: 07-06-2023 take 8 mg by mouth every twenty-four hours Loperamide Discontinued 2 MG PO Q4H May 12, 2022 11:00pm July 06, 2023 2:16pm administer after each loose stool until symptoms controlled; do not exceed 8 mg per 24 hrs tamsulosin hydrochloride 0.4 mg oral capsule (11 sources) alpha-Adrenergic Enmanuel Start: 05-13-2022 End: 01-04-2024 take 1 tablet by mouth once daily at bedtime Tamsulosin 0.4 mg capsule Discontinued 0.4 mg PO AT BEDTIME May 13, 2022 12:00am January 04, 2024 2:02pm take one tab PO qHS tiZANidine 4 mg oral tablet (4 sources) Central alpha-2 Adrenergic Agonist Start: 06-02-2024 End: 06-16-2024 tiZANidine 4 mg oral tablet Dose : 4 mg = 1 tab(s), Oral, BID, PRN as needed for muscle spasm, # 14 tab(s), 1 Refill(s), Pharmacy: [facility], Low back pain, 185.3, cm, 06/02/24 15:06:00 EDT, Height, kg, 06/02/24 15:06:00 EDT, Dosing Weight Start Date: 06/02/24 Stop Date: 06/16/24 Status: Ordered Quantity: 14.0 Unit: tab(s) Repeat number: 2 Indications: Low back pain, unspecified; Start: 03-06-2024 End: 03-13-2024 tiZANidine 4 mg oral tablet Dose : 4 mg = 1 tab(s), Oral, BID, PRN as needed for muscle spasm, # 14 tab(s), 0 Refill(s), Pharmacy: [facility], Low back pain, 183, cm, 03/06/24 14:47:00 EDT, Height, kg, 03/06/24 14:47:00 EDT, Dosing Weight Start Date: 03/06/24 Stop Date: 03/13/24 Status: Ordered Problems Active Problems Problem Classification Problem Date Documented Da te Episodic/Chronic Abdominal pain (7 sources) Pain in male pelvis 09-11-2019 Episodic Cancer of bone and connective tissue (1 source) 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 Cancer of prostate (20 sources) Primary malignant neoplasm of prostate; Translations: [Malignant neoplasm of prostate] Onset: Chronic Cancer of prostate (6 sources) History of malignant neoplasm of prostate 10-28-2022 Episodic Cancer; other and unspecified primary (6 sources) History of malignant neoplasm of bone 10-28-2022 Episodic Disorders of lipid metabolism (9 sources) Mixed hyperlipidemia; Translations: [Mixed hyperlipidemia] Onset: 5 09-11-2019 Chronic Diverticulosis and diverticulitis (3 sources) Diverticulosis of colon; Translations: [Diverticulosis of large intestine without perforation or abscess without bleeding] 10-01-2022 Chronic Esophageal disorders (5 sources) Gastroesophageal reflux disease 05-10-2023 Chronic Essential hypertension (8 sources) Essential hypertension; Translations: [Essential (primary) hypertension] Onset: 5 10-28-2022 Chronic Gastrointestinal hemorrhage (7 sources) Hematochezia; Translations: [Melena] 05-19-2022 Episodic Immunizations and screening for infectious disease (9 sources) Patient encounter status; Translations: [Encounter for screening for COVID-19] 07-20-2021 Episodic Inflammatory conditions of male genital organs (4 sources) Prostatitis 03-06-2024 Episodic Mood disorders (1 source) Depressive disorder 09-11-2019 Chronic Other bone disease and musculoskeletal deformities (5 sources) Osteopenia 11-10-2022 Episodic Comment on above: high fracture risk b ased on FRAX score, DEXA scan 2022 Other connective tissue disease (4 sources) Weakness of back 03-06-2024 Episodic Other ear and sense organ disorders (6 sources) Sensation of blocked ear 10-28-2022 Episodic Other gastrointestinal disorders (2 sources) Heartburn 09-11-2019 Episodic Other lower respiratory disease (1 source) Other forms of dyspnea; Translations: [Other forms of dyspnea] Onset: Episodic Other male genital disorders (7 sources) Impotence 09-11-2019 Chronic Other non-traumatic joint disorders (7 sources) Arthropathy 09-11-2019 Chronic Other screening for suspected conditions (not mental disorders or infectious disease) (7 sources) Prostate specific antigen abnormal 09-11-2019 Episodic Other upper respiratory infections (9 sources) Upper respiratory infection; Translations: [Acute upper respiratory infection, unspecified] 07-20-2021 Episodic Residual codes; unclassified (6 sources) Not for resuscitation 10-28-2022 Episodic Rheumatoid arthritis and related disease (4 sources) Arthropathy of lumbar facet joint 03-09-2024 Chronic Spondylosis; intervertebral disc disorders; other back problems (8 sources) Degeneration of lumbar intervertebral disc; Translations: [Lumbar spondylosis] 03-09-2024 Chronic Spondylosis; intervertebral disc disorders; other back problems (4 sources) Low back pain 03-06-2024 Episodic Unclassified (6 sources) Influenza vaccination declined 10-28-2022 Unclassified (6 sources) Pneumococcal vaccination declined 10-28-2022 Unclassified (5 sources) Long-term current use of proton pump inhibitor therapy 05-10-2023 Unclassified (1 source) Low back pain, unspecified; Translations: [Low back pain, unspecified] Onset: Unclassified (2 sources) Tetanus vaccination refused by patient 06-02-2024 Viral infection (9 sources) Disease caused by 2019-nCoV; Translations: [COVID-19] 07-20-2021 Episodic Past or Other Problems Problem Classification Problem Date Documented Da te Episodic/Chronic Unclassified (1 source) Low back pain, unspecified; Translations: [Low back pain, unspecified] Onset: 03-06-2024 Results Test Name Value Interpretation Reference Range Facility PSA,Total- [facility] 12-29 PSA, DIAGNOSTIC < 0.02 Normal 0.00-4.00 [facility] Comment on above: Result Comment: This test was performed using the [facility] tPSA method. Measured values of a patient??sample can vary depending on the testing procedure used. PSA values determined on patient samples by different testing procedures cannot be used interchangeably. If there is a change in PSA assays while monitoring therapy, sequential testing should be performed to confirm baseline values. Performed By: #### L 501.9980 #### [facility] [address] [place], [place], [id number] LABORATORYOrdered By: Cindy Diez on 01-05-2025 Albumin DL <= 20 mg/L (U) [Mass/Vol] 15.4 mg/L Invalid Interpretation Code AO ADM SS Albumin/Creatinine DL <= 20 mg/L (U) [Mass ratio] 6 mg/G Normal 0 - 30 mg/G AO Chemistry S Creatinine (U) [Mass/Vol] 250.0 mg/dL Normal 40.0 - 278.0 mg/dL AO ADM SS Cholesterol [Mass/Vol] 256 mg/dL High 0 - 200 mg/dL AO ADM SS Comment on above: Interpretive Data: C holesterol Reference Interval: Less than 200 Desirable 200-239 Borderline high risk 240 and above High risk Cholesterol in HDL [Mass/Vol] 51 mg/dL Normal 40 - 60 mg/dL AO ADM SS Cholesterol in LDL [Mass/Vol] 171 mg/dL High 0 - 130 mg/dL AO ADM SS Triglyceride [Mass/Vol] 170 mg/dL High 0 - 150 mg/dL AO ADM SS Comment on above: Interpretive Data: T riglyceride Reference Interval: Less than 150 Normal 150-199 Borderline high risk 200-499 High risk 500 or higher Very high risk LIPIDon 01-05-2025 Cholesterol [Mass/Vol] 256 mg/dL High 0-200 [facility] Comment on above: Result Comment: Chol esterol Reference Interval: Less than 200 Desirable 200-239 Borderline high risk 240 and above High risk Performed By: #### G FR, A1C, ADIFF, LIPID, CBC, CMP, ANEU #### [address] [address] Cholesterol in HDL [Mass/Vol] 51 mg/dL Normal 40-[address] [facility] Comment on above: Performed By: #### G FR, A1C, ADIFF, LIPID, CBC, CMP, ANEU #### [address] [address] Cholesterol in LDL [Mass/Vol] 171 mg/dL High 0-[address] [facility] Comment on above: Performed By: #### G FR, A1C, ADIFF, LIPID, CBC, CMP, ANEU #### [address] [address] Triglyceride [Mass/Vol] 170 mg/dL High 0-[address] [facility] Comment on above: Result Comment: Trig lyceride Reference Interval: Less than 150 Normal 150-199 Borderline high risk 200-499 High risk 500 or higher Very high risk Performed By: #### G FR, A1C, ADIFF, LIPID, CBC, CMP, ANEU #### [address] [place], [place] [address] MALBRon 01-05-2025 U Creatinine 250.0 mg/dL Normal 40.0-278.[address] [facility] Comment on above: Performed By: #### M ALBR #### [address] [address] U Microalb 15.4 mg/L Normal [facility] Comment on above: Performed By: #### M ALBR #### [address] [place], [place] [address] U Ratio Alb/Cre 6 mg/G Normal 0-[address] [facility] Comment on above: Performed By: #### M ALBR #### [address] [address] PSA,Total- [facility]icon 03- PSA, DIAGNOSTIC < 0.02 Normal 0.00-4.00 [facility] Comment on above: Result Comment: This test was performed using the [facility] tPSA method. Measured values of a patient??sample can vary depending on the testing procedure used. PSA values determined on patient samples by different testing procedures cannot be used interchangeably. If there is a change in PSA assays while monitoring therapy, sequential testing should be performed to confirm baseline values. Performed By: #### L [id number] #### [facility] [address] [place], [place], [address] Radiation Oncology Visiton 0 11-02-2024 Radiation Oncology Visit [facility] [address] [place] [address] OFFICE VISIT Date of Service: 11/02/24 1420 MR#: [id number] Acct: [id number] Name: RIMA GRACE Rep #: [id number] : 1940 From: Jerome Benjamin DO Age/Sex: 84/M [place] [facility] [place]: Signed Intake Vital Signs 07/06/24 14:06 11/02/24 14:22 Height 6 ft 2 in 6 ft 2 in Weight: 229 lb 237 lb 2 oz BMI 29.4 30.4 BP 139/83 H 162/88 H Blood Pressure Location Rt brachial Rt brachial Position Sitting Sitting Respiration 18 18 Pulse 86 83 Pulse Source Monitor Monitor Temp 97.2 F L 97.2 F L Temperature Source Temporal Artery Temporal Artery Pulse Oximetry (%) 98 98 Oxygen Delivery Method room air room air Intake Visit Reasons: 4 MONTH F/U PROSTATE, PSA PRIOR Is patient in pain?: No Allergies No Known Allergies Allergy (Verified 11/02/24 14:24) Medications ???Medication ???Instructions ???Recorded ???Confirmed ???Type calcium 600 mg (as 2 cap PO DAILY supplement 03/05/22 11/02/24 History carbonate)-vitamin D3 12.5 mcg (500 unit) capsule (Calcium with Vit D3) esomeprazole magnesium 20 mg 20 mg PO DAILY PRN upset stomach 1 09/21/21 11/02/24 History capsule,delayed release sertraline 25 mg tablet 25 mg PO DAILY PRN Anxiety 2 11/02/24 History Have you fallen in the past year?: No PFSH PFSH Medical History Loss of hearing Wears glasses Cancer Depression Anxiety Former smoker Blood in stool Wears dentures Alcohol use Prostate disease High cholesterol Heartburn Former smoker Lead poisoning Back injury Home Medications ???Medication ???Instructions ???Recorded ???Last Taken ???Type calcium 600 mg (as 2 cap PO DAILY supplement 03/05/22 Unknown History carbonate)-vitamin D3 12.5 mcg (500 unit) capsule (Calcium with Vit D3) esomeprazole magnesium 20 mg 20 mg PO DAILY PRN upset stomach 1 09/21/21 Unknown History capsule,delayed release sertraline 25 mg tablet 25 mg PO DAILY PRN Anxiety 2 09/17/22 History Allergy/AdvReac Type Severity Reaction Status Date / Time No Known Allergies Allergy Verified 11/02/24 14:24 Surgical History History of cataract extraction History of colonoscopy History of removal of cyst H/O removal of cyst Social History housing: house current occupational status: retired pets and animals: Yes pets and animals: dog(s) Smoking Status: Former smoker pack-years: 1 Tobacco: How many years used: 15 alcohol intake: current alcohol intake frequency: 3 or more drinks per day Alcohol type: beer and hard liquor Diagnosis: Rima Grace is an 84-year-old male 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 From 04/27/2022 ??? 06/04/2022 he received definitive radiation therapy with long-term ADT. History of Present Illness: 02/12/2022: Patient completed TRUS guided prostate biopsy.??? Pathology demonstrated Radha score 5+3 adenocarcinoma involving greater than 95% of 1 core in the left prostate apex, Radha score 3+4 adenocarcinoma involving 90% of 1 core in the left prostate mid, Radha score 3+3 adenocarcinoma involving about 50% of 1 core in the right prostate apex, about 70% of 1 core in the right prostate mid, about 40% of 1 core in the right prostate base, and about 25% of 1 core in the left prostate base. 02/26/2022: Patient was seen by urology.??? Discussed biopsy results and recommended radiation therapy and long-term ADT 04/16/2022: MRI with and without contrast was performed.??? This demonstrated a PI-RADS 4 lesion without evidence of extraprostatic extension or pelvic adenopathy. From 04/27/2022 ??? 06/04/2022: received 7000 cGy delivered to the prostate and seminal vesicles, 5600 cGy delivered to the upper SVs and 5040 cGy to the pelvic lymph nodes in 28 fractions using a VMAT plan.??? He was treated using 10 MV photons.??? 09/17/2022: Colonoscopy was completed. This demonstrated hemorrhoids which were nonbleeding internal hemorrhoids and diverticulosis noted throughout the colon. Otherwise exam was normal with no other findings. Radiation Treatment History: 1) From 04/27/2022 ??? 06/04/2022: received 7000 cGy delivered to the prostate and seminal vesicles, 5600 cGy delivered to the upper SVs and 5040 cGy to the pelvic lymph nodes in 28 fractions using a VMAT plan.??? He was treated using 10 MV photons. Interval History: Patient returns for routine follow-up approximately 2.5 years after completing definitive radiation therapy for hig (more content not included)... Normal [facility] Radiation Oncology Visiton 1 09-05-2023 Radiation Oncology Visit [facility] [address] [place] [address] OFFICE VISIT Date of Service: 07/06/24 1404 MR#: [id number] Acct: [id number] Name: RIMA GRACE Rep #: [id number] : 1940 From: Jerome Benjamin DO Age/Sex: 84/M Location: [facility] [place] Status: Signed Intake Vital Signs 01/04/24 14:03 07/06/24 14:06 Height 6 ft 2 in 6 ft 2 in Weight: 229 lb BMI 29.4 BP 139/83 H Blood Pressure Location Rt brachial Position Sitting Respiration 18 Pulse 86 Pulse Source Monitor Temp 97.2 F L Temperature Source Temporal Artery Pulse Oximetry (%) 98 Oxygen Delivery Method room air Intake Visit Reasons: 6 MONTH F/U PROSTATE Is patient in pain?: No Allergies No Known Allergies Allergy (Verified 07/06/24 14:08) Medications ???Medication ???Instructions ???Recorded ???Confirmed ???Type calcium 600 mg (as 2 cap PO DAILY supplement 03/05/22 07/06/24 History carbonate)-vitamin D3 12.5 mcg (500 unit) capsule (Calcium with Vit D3) esomeprazole magnesium 20 mg 20 mg PO DAILY PRN upset stomach 07/22/22 07/06/24 History capsule,delayed release sertraline 25 mg tablet 25 mg PO DAILY PRN Anxiety 07/22/22 07/06/24 History Have you fallen in the past year?: No PFSH PFSH Medical History Loss of hearing Wears glasses Cancer Depression Anxiety Former smoker Blood in stool Wears dentures Alcohol use Prostate disease High cholesterol Heartburn Former smoker Lead poisoning Back injury Home Medications ???Medication ???Instructions ???Recorded ???Last Taken ???Type calcium 600 mg (as 2 cap PO DAILY supplement 03/05/22 Unknown History carbonate)-vitamin D3 12.5 mcg (500 unit) capsule (Calcium with Vit D3) esomeprazole magnesium 20 mg 20 mg PO DAILY PRN upset stomach 07/22/22 Unknown History capsule,delayed release sertraline 25 mg tablet 25 mg PO DAILY PRN Anxiety 07/22/22 09/17/22 History Allergy/AdvReac Type Severity Reaction Status Date / Time No Known Allergies Allergy Verified 07/06/24 14:08 Surgical History History of cataract extraction History of colonoscopy History of removal of cyst H/O removal of cyst Social History housing: house current occupational status: retired pets and animals: Yes pets and animals: dog(s) Smoking Status: Former smoker pack-years: 1 Tobacco: How many years used: 15 alcohol intake: current alcohol intake frequency: 3 or more drinks per day Alcohol type: beer and hard liquor Diagnosis: Rima Grace is an 84-year-old male 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 From 04/27/2022 ??? 06/04/2022 he received definitive radiation therapy with long-term ADT. History of Present Illness: 02/12/2022: Patient completed TRUS guided prostate biopsy.??? Pathology demonstrated Radha score 5+3 adenocarcinoma involving greater than 95% of 1 core in the left prostate apex, Radha score 3+4 adenocarcinoma involving 90% of 1 core in the left prostate mid, Radha score 3+3 adenocarcinoma involving about 50% of 1 core in the right prostate apex, about 70% of 1 core in the right prostate mid, about 40% of 1 core in the right prostate base, and about 25% of 1 core in the left prostate base. 02/26/2022: Patient was seen by urology.??? Discussed biopsy results and recommended radiation therapy and long-term ADT 04/16/2022: MRI with and without contrast was performed.??? This demonstrated a PI-RADS 4 lesion without evidence of extraprostatic extension or pelvic adenopathy. From 04/27/2022 ??? 06/04/2022: received 7000 cGy delivered to the prostate and seminal vesicles, 5600 cGy delivered to the upper SVs and 5040 cGy to the pelvic lymph nodes in 28 fractions using a VMAT plan.??? He was treated using 10 MV photons.??? 09/17/2022: Colonoscopy was completed. This demonstrated hemorrhoids which were nonbleeding internal hemorrhoids and diverticulosis noted throughout the colon. Otherwise exam was normal with no other findings. Radiation Treatment History: 1) From 04/27/2022 ??? 06/04/2022: received 7000 cGy delivered to the prostate and seminal vesicles, 5600 cGy delivered to the upper SVs and 5040 cGy to the pelvic lymph nodes in 28 fractions using a VMAT plan.??? He was treated using 10 MV photons. Interval History: Patient returns for routine follow-up approximately 25 months after completing definitive radiation therapy for high risk prostate cancer. He reports having normal bowel movements without diarrhea or constipation. He denies having rectal (more content not included)... Normal [facility] .Auto Diffon 05-29-2024 Basophil, Absolute 0.0 10 3/mcL Normal 0.0-0.2 [facility] Comment on above: Performed By: #### G FR, A1C, ADIFF, LIPID, CBC, CMP, ANEU #### [address] [address] Basophils/100 WBC (Bld) 0.5 % Normal 0.0-2.[address] [facility] Comment on above: Performed By: #### G FR, A1C, ADIFF, LIPID, CBC, CMP, ANEU #### [address] [place], [place] [address] Eosinophil, Absolute 0.2 10 3/mcL Normal 0.0-0.7 [facility] Comment on above: Performed By: #### G FR, A1C, ADIFF, LIPID, CBC, CMP, ANEU #### [address] [address] Eosinophils/100 WBC (Bld) 3.5 % Normal 0.0-7.[address] [facility] Comment on above: Performed By: #### G FR, A1C, ADIFF, LIPID, CBC, CMP, ANEU #### [address] [address] Lymphocyte, Absolute 1.2 10 3/mcL Normal 0.9-4.3 [facility] Comment on above: Performed By: #### G FR, A1C, ADIFF, LIPID, CBC, CMP, ANEU #### [address] [address] Lymphocytes/100 WBC (Bld) 27.0 % Normal 20.0-40.[address] [facility] Comment on above: Performed By: #### G FR, A1C, ADIFF, LIPID, CBC, CMP, ANEU #### [address] [address] Monocyte, Absolute 0.4 10 3/mcL Normal 0.1-1.4 [facility] Comment on above: Performed By: #### G FR, A1C, ADIFF, LIPID, CBC, CMP, ANEU #### [address] [address] Monocytes/100 WBC (Bld) 8.2 % Normal 2.0-13.[address] [facility] Comment on above: Performed By: #### G FR, A1C, ADIFF, LIPID, CBC, CMP, ANEU #### [address] [address] Neutrophils/100 WBC (Bld) 60.8 % Normal 50.0-75.[address] [facility] Comment on above: Performed By: #### G FR, A1C, ADIFF, LIPID, CBC, CMP, ANEU #### [address] [address] .GFRon 05-29-2024 GFR 92 ml/min/1.73sqm Normal [facility] Comment on above: Result Comment: GFR Population mean for , Non- Americans Ages 20-29 = 116 mL/min/1.73 sq.m. Ages 30-39 = 107 mL/min/1.73 sq.m. Ages 40-49 = 99 mL/min/1.73 sq.m. Ages 50-59 = 93 mL/min/1.73 sq.m. Ages 60-69 = 85 mL/min/1.73 sq.m. Ages 70+ = 75 mL/min/1.73 sq.m. Chronic Kidney Disease: Less than 60 mL/min/1.73 square meters End Stage Renal Disease: Less than 15 mL/min/1.73 square meters Performed By: #### G FR, A1C, ADIFF, LIPID, CBC, CMP, ANEU #### [address] [address] GFR Non- 76 ml/min/1.73sqm Normal [facility] Comment on above: Result Comment: GFR Population mean for , Non- Americans Ages 20-29 = 116 mL/min/1.73 sq.m. Ages 30-39 = 107 mL/min/1.73 sq.m. Ages 40-49 = 99 mL/min/1.73 sq.m. Ages 50-59 = 93 mL/min/1.73 sq.m. Ages 60-69 = 85 mL/min/1.73 sq.m. Ages 70+ = 75 mL/min/1.73 sq.m. Chronic Kidney Disease: Less than 60 mL/min/1.73 square meters End Stage Renal Disease: Less than 15 mL/min/1.73 square meters Performed By: #### G FR, A1C, ADIFF, LIPID, CBC, CMP, ANEU #### [address] [address] .NEUABSon 05-29-2024 Neutrophil, Absolute 2.6 10 3/mcL Normal 2.3-8.1 [facility] Comment on above: Performed By: #### G FR, A1C, ADIFF, LIPID, CBC, CMP, ANEU #### [address] [address] A1Con 05-29-2024 Glucose [Mass/Vol] 120 mg/dL Normal [facility] Comment on above: Result Comment: Catie mated Average Glucose calculated by equation ((28.7xA1C)-46.7) Estimated average glucose (eAG) is a calculated value from Hemoglobin A1C and is sales representative printing supplies of the average blood glucose level in the last 2-3 month period. Normal range: less than 114 mg/dL Performed By: #### G FR, A1C, ADIFF, LIPID, CBC, CMP, ANEU #### [address] [address] HbA1c (Bld) [Mass fraction] 5.8 % Normal 4.3-6.[address] [facility] Comment on above: Performed By: #### G FR, A1C, ADIFF, LIPID, CBC, CMP, ANEU #### [address] [place] [address] CBCon 05-29-2024 Erythrocyte distribution width (RBC) [Ratio] 15.1 % Normal 11.5-15.[address] [facility] Comment on above: Performed By: #### G FR, A1C, ADIFF, LIPID, CBC, CMP, ANEU #### [address] [address] Hematocrit (Bld) [Volume fraction] 39.6 % Low 40.0-52.[address] [facility] Comment on above: Performed By: #### G FR, A1C, ADIFF, LIPID, CBC, CMP, ANEU #### [address] [place] [address] Hgb 13.2 G/dL Normal 13.0-17.[address] [facility] Comment on above: Performed By: #### G FR, A1C, ADIFF, LIPID, CBC, CMP, ANEU #### [place] [address] MCH (RBC) [Entitic mass] 30.4 pg Normal 27.0-33.[address] [facility] Comment on above: Performed By: #### G FR, A1C, ADIFF, LIPID, CBC, CMP, ANEU #### [place] [address] MCHC 33.4 G/dL Normal 32.0-36.[address] [facility] Comment on above: Performed By: #### G FR, A1C, ADIFF, LIPID, CBC, CMP, ANEU #### [address] [address] MCV (RBC) [Entitic vol] 90.9 fL Normal 81.0-100.[address] [facility] Comment on above: Performed By: #### G FR, A1C, ADIFF, LIPID, CBC, CMP, ANEU #### [address] [address] Platelet 151 10 3/mcL Normal 150-[address] [facility] Comment on above: Performed By: #### G FR, A1C, ADIFF, LIPID, CBC, CMP, ANEU #### [address] [address] Platelet mean volume (Bld) [Entitic vol] 9.7 fL Normal 6.4-10.[address] [facility] Comment on above: Performed By: #### G FR, A1C, ADIFF, LIPID, CBC, CMP, ANEU #### [address] [address] RBC 4.36 10 6/mcL Low 4.50-6.[address] [facility] Comment on above: Performed By: #### G FR, A1C, ADIFF, LIPID, CBC, CMP, ANEU #### [address] [address] WBC 4.3 10 3/mcL Low 4.5-10.[address] [facility] Comment on above: Performed By: #### G FR, A1C, ADIFF, LIPID, CBC, CMP, ANEU #### [address] [address] CMPon 05-29-2024 Albumin Level 3.6 G/dL Normal 3.4-4.[address] [facility] Comment on above: Performed By: #### G FR, A1C, ADIFF, LIPID, CBC, CMP, ANEU #### [address] [address] Albumin/Globulin [Mass ratio] 1.4 {ratio} Normal 1.1-2.[address] [facility] Comment on above: Performed By: #### G FR, A1C, ADIFF, LIPID, CBC, CMP, ANEU #### [address] [address] ALP [Catalytic activity/Vol] 87 U/L Normal 40-[address] [facility] Comment on above: Performed By: #### G FR, A1C, ADIFF, LIPID, CBC, CMP, ANEU #### [address] [address] ALT [Catalytic activity/Vol] 40 U/L Normal 16-[address] [facility] Comment on above: Performed By: #### G FR, A1C, ADIFF, LIPID, CBC, CMP, ANEU #### [address] [address] AST [Catalytic activity/Vol] 23 U/L Normal 10-[address] [facility] Comment on above: Performed By: #### G FR, A1C, ADIFF, LIPID, CBC, CMP, ANEU #### [address] [address] Bili Total 0.6 mg/dL Normal 0.2-1.[address] [facility] Comment on above: Result Comment: Use of this assay is not recommended for patients undergoing treatment with eltrombopag due to the potential for falsely elevated results. Performed By: #### G FR, A1C, ADIFF, LIPID, CBC, CMP, ANEU #### [address] [address] BUN/Creatinine Ratio 21 ratio Normal 7-27 [facility] Comment on above: Performed By: #### G FR, A1C, ADIFF, LIPID, CBC, CMP, ANEU #### [address] [address] Calcium [Mass/Vol] 9.1 mg/dL Normal 8.4-10.2 [facility] Comment on above: Performed By: #### G FR, A1C, ADIFF, LIPID, CBC, CMP, ANEU #### [address] [address] Chloride [Moles/Vol] 105 mmol/L Normal 98-107 [facility] Comment on above: Performed By: #### G FR, A1C, ADIFF, LIPID, CBC, CMP, ANEU #### [address] [address] CO2 [Moles/Vol] 30 mmol/L Normal 23-[address] [facility] Comment on above: Performed By: #### G FR, A1C, ADIFF, LIPID, CBC, CMP, ANEU #### [address] [address] Creatinine [Mass/Vol] 0.95 mg/dL Normal 0.70-1.30 [facility] Comment on above: Result Comment: Test ing performed on Siemens Dimension EXL analyzer using a modified kinetic Wade technique. Performed By: #### G FR, A1C, ADIFF, LIPID, CBC, CMP, ANEU #### [address] [address] Electrolyte Balance 6.0 mEq/L Normal 4.0-15.0 [facility] Comment on above: Performed By: #### G FR, A1C, ADIFF, LIPID, CBC, CMP, ANEU #### [address] [address] Globulin 2.6 G/dL Normal [facility] Comment on above: Performed By: #### G FR, A1C, ADIFF, LIPID, CBC, CMP, ANEU #### [address] [address] Glucose [Mass/Vol] 114 mg/dL High 83-110 [facility] Comment on above: Performed By: #### G FR, A1C, ADIFF, LIPID, CBC, CMP, ANEU #### [address] [address] Potassium [Moles/Vol] 4.8 mmol/L Normal 3.5-5.1 [facility] Comment on above: Performed By: #### G FR, A1C, ADIFF, LIPID, CBC, CMP, ANEU #### [address] [address] Sodium [Moles/Vol] 141 mmol/L Normal 136-145 [facility] Comment on above: Performed By: #### G FR, A1C, ADIFF, LIPID, CBC, CMP, ANEU #### [facility] [address] [place], [place] [address] Total Protein 6.2 G/dL Low 6.4-8.[address] [facility] Comment on above: Performed By: #### G FR, A1C, ADIFF, LIPID, CBC, CMP, ANEU #### [address] [place], [place] [address] Urea nitrogen [Mass/Vol] 20 mg/dL High 7-[address] [facility] Comment on above: Performed By: #### G FR, A1C, ADIFF, LIPID, CBC, CMP, ANEU #### [address] [place], [place] [address] DLDLon 05-29-2024 Direct LDL Cholesterol 147 mg/dL High 0-99 [facility] Comment on above: Result Comment: Dire ct LDL Cholesterol Reference Interval: Optimal: <100 mg/dL Near Optimal/above optimal: 100-129 mg/dL Borderline high: 130-159 mg/dL High: 160-189 mg/dL Very high: >=190 mg/dL Performed By: #### D LDL, TSHR #### [address] [address] LABORATORYOrdered By: Emile Escalera on 05-29-2024 Cholesterol in LDL [Mass/Vol] 147 mg/dL High 0 - 99 mg/dL AO ADM SS Comment on above: Interpretive Data: D irect LDL Cholesterol Reference Interval: Optimal: <100 mg/dL Near Optimal/above optimal: 100-129 mg/dL Borderline high: 130-159 mg/dL High: 160-189 mg/dL Very high: >=190 mg/dL Cholesterol [Mass/Vol] 266 mg/dL High 0 - 200 mg/dL AO ADM SS Comment on above: Interpretive Data: C holesterol Reference Interval: Less than 200 Desirable 200-239 Borderline high risk 240 and above High risk Cholesterol in HDL [Mass/Vol] 53 mg/dL Normal 40 - 60 mg/dL AO ADM SS Cholesterol in LDL [Mass/Vol] 157 mg/dL High 0 - 130 mg/dL AO ADM SS Triglyceride [Mass/Vol] 278 mg/dL High 0 - 150 mg/dL AO ADM SS Comment on above: Interpretive Data: T riglyceride Reference Interval: Less than 150 Normal 150-199 Borderline high risk 200-499 High risk 500 or higher Very high risk LABORATORYOrdered By: SYSTEM SYSTEM on 05-29-2024 TSH Qn 1.84 m[IU]/L Normal 0.36 - 3.74 mcIU/mL AO ADM SS Albumin BCP dye [Mass/Vol] 3.6 G/dL Normal 3.4 - 4.8 G/dL AO ADM SS Albumin/Globulin [Mass ratio] 1.4 {ratio} Normal 1.1 - 2.5 ratio AO ADM SS ALP [Catalytic activity/Vol] 87 U/L Normal 40 - 135 U/L AO ADM SS ALT With P-5'-P [Catalytic activity/Vol] 40 U/L Normal 16 - 63 U/L AO ADM SS AST With P-5'-P [Catalytic activity/Vol] 23 U/L Normal 10 - 40 U/L AO ADM SS Basophils (Bld) [#/Vol] 0.0 103/mcL Normal 0.0 - 0.2 10^3/mcL AO Workflow SS Basophils/100 WBC (Bld) 0.5 % Normal 0.0 - 2.5 % AO Workflow SS Bilirubin [Mass/Vol] 0.6 mg/dL Normal 0.2 - 1 .0 mg/dL AO ADM SS Comment on above: Interpretive Data: U se of this assay is not recommended for patients undergoing treatment with eltrombopag due to the potential for falsely elevated results. Calcium [Mass/Vol] 9.1 mg/dL Normal 8.4 - 10. 2 mg/dL AO ADM SS Chloride [Moles/Vol] 105 mmol/L Normal 98 - 10 7 mmol/L AO ADM SS CO2 [Moles/Vol] 30 mmol/L Normal 23 - 31 mmol/L AO ADM SS Creatinine [Mass/Vol] 0.95 mg/dL Normal 0.70 - 1.30 mg/dL AO ADM SS Comment on above: Interpretive Data: T esting performed on Siemens Dimension EXL analyzer using a modified kinetic Wade technique. Electrolyte Balance 6.0 mEq/L Normal 4.0 - 15 .0 mEq/L AO ADM SS Eosinophil, Absolute 0.2 103/mcL Normal 0.0 - 0 .7 10^3/mcL AO Workflow SS Eosinophils/100 WBC (Bld) 3.5 % Normal 0.0 - 7.0 % AO Workflow SS Erythrocyte distribution width (RBC) [Ratio] 15.1 % Normal 11.5 - 15.5 % AO Workflow SS GFR/1.73 sq M.predicted among blacks MDRD (S/P/Bld) [Vol rate/Area] 92 ml/min/1.73sqm Invalid Interpretation Code AO Chemistry S Comment on above: Interpretive Data: GFR Population mean for , Non- Americans Ages 20-29 = 116 mL/min/1.73 sq.m. Ages 30-39 = 107 mL/min/1.73 sq.m. Ages 40-49 = 99 mL/min/1.73 sq.m. Ages 50-59 = 93 mL/min/1.73 sq.m. Ages 60-69 = 85 mL/min/1.73 sq.m. Ages 70+ = 75 mL/min/1.73 sq.m. Chronic Kidney Disease: Less than 60 mL/min/1.73 square meters End Stage Renal Disease: Less than 15 mL/min/1.73 square meters GFR/1.73 sq M.predicted among non-blacks MDRD (S/P/Bld) [Vol rate/Area] 76 ml/min/1.73sqm Invalid Interpretation Code AO Chemistry S Comment on above: Interpretive Data: GFR Population mean for , Non- Americans Ages 20-29 = 116 mL/min/1.73 sq.m. Ages 30-39 = 107 mL/min/1.73 sq.m. Ages 40-49 = 99 mL/min/1.73 sq.m. Ages 50-59 = 93 mL/min/1.73 sq.m. Ages 60-69 = 85 mL/min/1.73 sq.m. Ages 70+ = 75 mL/min/1.73 sq.m. Chronic Kidney Disease: Less than 60 mL/min/1.73 square meters End Stage Renal Disease: Less than 15 mL/min/1.73 square meters Globulin 2.6 G/dL Invalid Interpretation Code AO ADM SS Glucose [Mass/Vol] 120 mg/dL Invalid Interpretation Code AO Chemistry S Comment on above: Interpretive Data: E stimated average glucose (eAG) is a calculated value from Hemoglobin A1C and is sales representative printing supplies of the average blood glucose level in the last 2-3 month period. Normal range: less than 114 mg/dL Glucose [Mass/Vol] 114 mg/dL High 83 - 110 mg/dL AO ADM SS HbA1c (Bld) [Mass fraction] 5.8 % Normal 4.3 - 6.4 % AO ADM SS Hematocrit (Bld) [Volume fraction] 39.6 % Low 40.0 - 52.0 % AO Workflow SS Hemoglobin (Bld) [Mass/Vol] 13.2 G/dL Normal 13.0 - 17.5 G/dL AO Workflow SS Lymphocytes (Bld) [#/Vol] 1.2 103/mcL Normal 0.9 - 4.3 10^3/mcL AO Workflow SS Lymphocytes/100 WBC (Bld) 27.0 % Normal 20.0 - 40.0 % AO Workflow SS MCH (RBC) [Entitic mass] 30.4 pg Normal 27.0 - 33.0 pg AO Workflow SS MCHC 33.4 G/dL Normal 32.0 - 36.0 G/dL AO Workflow SS MCV (RBC) [Entitic vol] 90.9 fL Normal 81.0 - 100.0 fL AO Workflow SS Monocytes (Bld) [#/Vol] 0.4 103/mcL Normal 0.1 - 1.4 10^3/mcL AO Workflow SS Monocytes/100 WBC (Bld) 8.2 % Normal 2.0 - 13.0 % AO Workflow SS Neutrophils (Bld) [#/Vol] 2.6 103/mcL Normal 2.3 - 8.1 10^3/mcL AO Workflow SS Neutrophils/100 WBC (Bld) 60.8 % Normal 50.0 - 75.0 % AO Workflow SS Platelet mean volume (Bld) [Entitic vol] 9.7 fL Normal 6.4 - 10.5 fL AO Workflow SS Platelets (Bld) [#/Vol] 151 103/mcL Normal 150 - 450 10^3/mcL AO Workflow SS Potassium [Moles/Vol] 4.8 mmol/L Normal 3.5 - 5.1 mmol/L AO ADM SS Protein [Mass/Vol] 6.2 G/dL Low 6.4 - 8.2 G/dL AO ADM SS RBC (Bld) [#/Vol] 4.36 106/mcL Low 4.50 - 6.0 0 10^6/mcL AO Workflow SS Sodium [Moles/Vol] 141 mmol/L Normal 136 - 145 mmol/L AO ADM SS Urea nitrogen [Mass/Vol] 20 mg/dL High 7 - 18 mg/dL AO ADM SS Urea nitrogen/Creatinine [Mass ratio] 21 ratio Normal 7 - 27 ratio AO ADM SS WBC (Bld) [#/Vol] 4.3 103/mcL Low 4.5 - 10.8 10^3/mcL AO Workflow SS LIPIDon 05-29-2024 Cholesterol [Mass/Vol] 266 mg/dL High 0-200 [facility] Comment on above: Result Comment: Chol esterol Reference Interval: Less than 200 Desirable 200-239 Borderline high risk 240 and above High risk Performed By: #### G FR, A1C, ADIFF, LIPID, CBC, CMP, ANEU #### [address] [address] Cholesterol in HDL [Mass/Vol] 53 mg/dL Normal 40-[address] [facility] Comment on above: Performed By: #### G FR, A1C, ADIFF, LIPID, CBC, CMP, ANEU #### [address] [address] Cholesterol in LDL [Mass/Vol] 157 mg/dL High 0-[address] [facility] Comment on above: Performed By: #### G FR, A1C, ADIFF, LIPID, CBC, CMP, ANEU #### [address] [address] Triglyceride [Mass/Vol] 278 mg/dL High 0-[address] [facility] Comment on above: Result Comment: Trig lyceride Reference Interval: Less than 150 Normal 150-199 Borderline high risk 200-499 High risk 500 or higher Very high risk Performed By: #### G FR, A1C, ADIFF, LIPID, CBC, CMP, ANEU #### [address] [address] TSHRon 05-29-2024 TSH Qn 1.84 m[IU]/L Normal 0.36-3.[address] [facility] Comment on above: Performed By: #### D LDL, TSHR #### [address] [address] PSA,Total- Diagnosticon PSA, DIAGNOSTIC < 0.01 Normal 0.0-4.0 [facility] Comment on above: Result Comment: This test was performed using the TPSA assay method for the [employer] chemistry system. Values obtained with different assay methods cannot be used interchangably. When changing PSA assays in the course of monitoring a patient, additional sequential testing should be carried out to confirm baseline values. Performed By: #### L 501.9940 #### [facility] [address] [place], [address] CBC-Complete Blood Cnt No Di ffon 03-07-2024 Erythrocyte distribution width (RBC) [Ratio] 14.5 % Normal 11.6-14.6 [facility] Comment on above: Performed By: #### L 100.0500, L500.4050 #### [facility] [address] [place], [address] Hematocrit (Bld) [Volume fraction] 42.1 % Normal 40-54 [facility] Comment on above: Performed By: #### L 100.0500, L500.4050 #### [facility] [address] [place], [address] Hemoglobin (Bld) [Mass/Vol] 13.4 g/dL Normal 13.0-16.5 [facility] Comment on above: Performed By: #### L 100.0500, L500.4050 #### [facility] [address] [place], [address] MCH (RBC) [Entitic mass] 28.4 pg Normal 27.0-32.0 [facility] Comment on above: Performed By: #### L 100.0500, [id number] #### [facility] [address] [place], [address] MCHC (RBC) [Mass/Vol] 31.8 g/dL Low 32-36 [facility] Comment on above: Performed By: #### L 100.0500, [id number] #### [facility] [address] [place], [address] MCV (RBC) [Entitic vol] 89.2 fL Normal 80-94 [facility] Comment on above: Performed By: #### L 100.0500, [id number] #### [facility] [address] [place], [address] Platelet mean volume (Bld) [Entitic vol] 11.8 fL Normal 6.2-12.0 [facility] Comment on above: Performed By: #### L 100.0500, L500.4050 #### [facility] [address] [place], [address] Platelets (Bld) [#/Vol] 163 10*3/uL Normal 150-450 [facility] Comment on above: Performed By: #### L 100.0500, [id number] #### [facility] [address] [place], [address] RBC (Bld) [#/Vol] 4.72 10*6/uL Normal 4.6-6.2 [facility] Comment on above: Performed By: #### L 100.0500, [id number] #### [facility] [address] [place], [address] RDW SD 46.6 fl High 35.1-43.9 [facility] Comment on above: Performed By: #### L 100.0500, [id number] #### [facility] [address] [place], [address] WBC (Bld) [#/Vol] 4.6 10*3/uL Normal 4.4-11.0 [facility] Comment on above: Performed By: #### L 100.0500, [id number] #### [facility] [address] [place], [address] Comprehensive Metabolic Prof njrivera 03-07-2024 Albumin [Mass/Vol] 3.6 g/dL Normal 3.2-5.0 [facility] Comment on above: Performed By: #### L 100.0500, [id number] #### [facility] [address] [place], [address] Albumin/Globulin [Mass ratio] 1.2 {ratio} Normal 0.9-2.4 [facility] Comment on above: Performed By: #### L 100.0500, [id number] #### [facility] [address] [place], [address] ALK P 87 U/L Normal 45-117 [facility] Comment on above: Performed By: #### L 100.0500, [id number] #### [facility] [address] [place], [address] ALT [Catalytic activity/Vol] 35 U/L Normal 16-61 [facility] Comment on above: Performed By: #### L 100.0500, [id number] #### [facility] [address] [place], [address] AST [Catalytic activity/Vol] 26 U/L Normal 15-37 [facility] Comment on above: Performed By: #### L 100.0500, [id number] #### [facility] [address] [place], [address] Bilirubin [Mass/Vol] 0.60 mg/dL Normal 0.20-1.00 [facility] Comment on above: Result Comment: For patients on eltrombopag therapy, use of Dimension [place] TBIL is not recommended. Performed By: #### L 100.0500, L500.4050 #### [facility] [address] [place], [address] BUN/CRE 17.3 RATIO Normal 10-20 [facility] Comment on above: Performed By: #### L 100.0500, [id number] #### [facility] [address] [place], [address] CA,Total 9.5 mg/dL Normal 8.5-10.1 [facility] Comment on above: Performed By: #### L 100.0500, [id number] #### [facility] [address] [place], [address] Chloride [Moles/Vol] 105 mmol/L Normal 98-107 [facility] Comment on above: Performed By: #### L 100.0500, [id number] #### [facility] [address] [place], [address] CO2 [Moles/Vol] 28.0 mmol/L Normal 21.0-32.0 [facility] Comment on above: Performed By: #### L 100.0500, [id number] #### [facility] [address] [place], [address] Creatinine [Mass/Vol] 0.86 mg/dL Normal 0.70-1.30 [facility] Comment on above: Result Comment: The validity of the calculated GFR GFRAA in patients over 70 years has not been determined. Clinical correlation is essential. Performed By: #### L 100.0500, L500.4050 #### [facility] [address] [place], [address] EST GFR - AA 109 mL/min Normal >60 [facility] Comment on above: Result Comment: Afri can Lithuanian GFR Calc Performed By: #### L 100.0500, [id number] #### [facility] [address] [place], [address] GAP 6 Normal 5-15 [facility] Comment on above: Performed By: #### L 100.0500, [id number] #### [facility] [address] [place], [address] GFR/1.73 sq M.predicted among non-blacks MDRD (S/P/Bld) [Vol rate/Area] 90 mL/min/{1.73_m2} Normal >60 [facility] Comment on above: Result Comment: Non- GFR Calc Performed By: #### L 100.0500, [id number] #### [facility] [address] [place], [address] Globulin (S) [Mass/Vol] 3.0 g/dL Normal 2.2-4.2 [facility] Comment on above: Performed By: #### L 100.0500, [id number] #### [facility] [address] [place], [address] Glucose [Mass/Vol] 115 mg/dL High 74-106 [facility] Comment on above: Result Comment: Fast ing Glucose result from 100 to 125 mg/dL suggests IMPAIRED HOMEOSTASIS per A.D.A. criteria. Performed By: #### L 100.0500, L500.4050 #### [facility] [address] [place], [address] Potassium [Moles/Vol] 4.0 mmol/L Normal 3.5-5.1 [facility] Comment on above: Performed By: #### L 100.0500, L500.4050 #### [facility] [address] [place], [address] Sodium [Moles/Vol] 139 mmol/L Normal 136-145 [facility] Comment on above: Performed By: #### L 100.0500, L500.4050 #### [facility] [address] [place], [address] T PROT 6.6 g/dL Normal 6.4-8.2 [facility] Comment on above: Performed By: #### L 100.0500, L500.4050 #### [facility] [address] [place], [address] Urea nitrogen [Mass/Vol] 15 mg/dL Normal 7-18 [facility] Comment on above: Performed By: #### L 100.0500, L500.4050 #### [facility] [address] [place], [address] L/S Spine Min 4 Viewson 07-0 9-4 L/S Spine Min 4 Views [facility] [address] [place] [address] L/S Spine Min 4 Views MR#: [id number] Acct: [id number] Name: RIMA GRACE Rep #: [id number] : 1940 M [id number] From: Papo Barrera MD PCP: Dr. Lamberto Mckeon, DO Status: REG CLI Study: L/S Spine Min 4 Views Date of Exam: 03/07/24 Exam# [id number] Ordering Dr: Papo Mark PLANER STONE PLANER STONE-C [id number] STUDY: X-RAY - LUMBAR SPINE REASON FOR EXAM: Male, 83 years old. Low back pain, unspecified TECHNIQUE: 5 view(s) of the lumbar spine were obtained. COMPARISON: None FINDINGS: Normal lumbar lordosis. There is no substantial scoliosis. There is a normal alignment of the vertebrae. 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 There is multi-level degenerative disc disease with multi-level disc space narrowing. Multilevel facet hypertrophy in the lumbar spine. The soft tissue structures are unremarkable. RAD/L/S Spine Min 4 Views IMPRESSION: Degenerative changes of the spine, as detailed above. MRI may be useful. Electronically Signed: Papo Barrera MD at 12:52 EDT , CC: JAIRON Mark; Dr. Lamberto Mckeon DO Concessions Manager: Signed Normal [facility] No Panel Informationon 03-06 Culture Urine <10,000 cfu/ml. No Significant growth. Sensitivity not indicated. [facility] Basophil percentageOrdered B y: Fabiola Raleigh on 09-30-2023 Basophil percentage < 0.01 ng/mL 0.0-4.0 [facility] Comment on above: This test was perfor med using the TPSA assay method for theDimension chemistry system. Values obtained with differentassay methods cannot be used interchangably.When changing PSA assays in the course of monitoring apatient, additional sequential testing should be carriedout to confirm baseline values. No Panel InformationOrdered By: Fabiola Raleigh on 07-05-2023 Prostate Specific Antigen Total < 0.01 ng/mL 0.0-4.0 [facility] Comment on above: This test was perfor med using the TPSA assay method for theDimension chemistry system. Values obtained with differentassay methods cannot be used interchangably.When changing PSA assays in the course of monitoring apatient, additional sequential testing should be carriedout to confirm baseline values. Direct LDLon 05-12-2023 LDL Cholesterol Direct 123 mg/dL High <100 [facility] ([place]) Comment on above: Result Comment: <100 mg/dL, Optimal 100-129 mg/dL, Near optimal/above optimal 130-159 mg/dL, Borderline high 160-189 mg/dL, High >189 mg/dL, Very high Secondary prevention optimal LDL Cholesterol levels are recommended to be < 70 mg/dL Performed By: [facility] [address] [place] [address] [employer] Senior Specialist: Rasheed Yeh III, M.D. CLIA#: [id number] Performed By: #### A 1C, GFR, TSH, ANEU, ADIFF, FT4, VIDH, LIPID, LDLDCT, CMP, CBC #### [address] [address] VLDL Cholesterol See Below Normal [facility] ([place]) Comment on above: Result Comment: Test not indicated. Performed By: [facility] [address] [place] [address] [employer] Senior Specialist: Konrad Fonseca IIIIA#: [id number] Performed By: #### A 1C, GFR, TSH, ANEU, ADIFF, FT4, VIDH, LIPID, LDLDCT, CMP, CBC #### [address] [address] .Auto Diffon 05-11-2023 Basophil, Absolute 0.0 10 3/mcL Normal 0.0-0.2 [facility] ([place]) Comment on above: Performed By: #### A 1C, GFR, TSH, ANEU, ADIFF, FT4, VIDH, LIPID, LDLDCT, CMP, CBC #### [address] [address] Basophils/100 WBC (Bld) 0.7 % Normal 0.0-2.5 [facility] ([place]) Comment on above: Performed By: #### A 1C, GFR, TSH, ANEU, ADIFF, FT4, VIDH, LIPID, LDLDCT, CMP, CBC #### [address] [address] Eosinophil, Absolute 0.1 10 3/mcL Normal 0.0-0.4 [facility] ([place]) Comment on above: Performed By: #### A 1C, GFR, TSH, ANEU, ADIFF, FT4, VIDH, LIPID, LDLDCT, CMP, CBC #### [address] [address] Eosinophils/100 WBC (Bld) 2.0 % Normal 0.0-7.0 [facility] ([place]) Comment on above: Performed By: #### A 1C, GFR, TSH, ANEU, ADIFF, FT4, VIDH, LIPID, LDLDCT, CMP, CBC #### [address] [address] Lymphocyte, Absolute 1.1 10 3/mcL Normal 0.8-3.9 [facility] ([place]) Comment on above: Performed By: #### A 1C, GFR, TSH, ANEU, ADIFF, FT4, VIDH, LIPID, LDLDCT, CMP, CBC #### [address] [address] Lymphocytes/100 WBC (Bld) 27.9 % Normal 10.0-50.0 [facility] ([place]) Comment on above: Performed By: #### A 1C, GFR, TSH, ANEU, ADIFF, FT4, VIDH, LIPID, LDLDCT, CMP, CBC #### [address] [address] Monocyte, Absolute 0.2 10 3/mcL Normal 0.2-1.0 [facility] ([place]) Comment on above: Performed By: #### A 1C, GFR, TSH, ANEU, ADIFF, FT4, VIDH, LIPID, LDLDCT, CMP, CBC #### [address] [address] Monocytes/100 WBC (Bld) 6.3 % Normal 1.7-13.0 [facility] ([place]) Comment on above: Performed By: #### A 1C, GFR, TSH, ANEU, ADIFF, FT4, VIDH, LIPID, LDLDCT, CMP, CBC #### [address] [address] Neutrophils/100 WBC (Bld) 63.1 % Normal 37.0-80.0 [facility] ([place]) Comment on above: Performed By: #### A 1C, GFR, TSH, ANEU, ADIFF, FT4, VIDH, LIPID, LDLDCT, CMP, CBC #### [address] [address] .GFRon 05-11-2023 GFR Non- 82 ml/min/1.73sqm Normal [facility] ([place]) Comment on above: Result Comment: GFR Population mean for , Non- Americans Ages 20-29 = 116 mL/min/1.73 sq.m. Ages 30-39 = 107 mL/min/1.73 sq.m. Ages 40-49 = 99 mL/min/1.73 sq.m. Ages 50-59 = 93 mL/min/1.73 sq.m. Ages 60-69 = 85 mL/min/1.73 sq.m. Ages 70+ = 75 mL/min/1.73 sq.m. Chronic Kidney Disease: Less than 60 mL/min/1.73 square meters End Stage Renal Disease: Less than 15 mL/min/1.73 square meters Performed By: #### A 1C, GFR, TSH, ANEU, ADIFF, FT4, VIDH, LIPID, LDLDCT, CMP, CBC #### [address] [address] GFR 99 ml/min/1.73sqm Normal [facility] ([place]) Comment on above: Result Comment: GFR Population mean for , Non- Americans Ages 20-29 = 116 mL/min/1.73 sq.m. Ages 30-39 = 107 mL/min/1.73 sq.m. Ages 40-49 = 99 mL/min/1.73 sq.m. Ages 50-59 = 93 mL/min/1.73 sq.m. Ages 60-69 = 85 mL/min/1.73 sq.m. Ages 70+ = 75 mL/min/1.73 sq.m. Chronic Kidney Disease: Less than 60 mL/min/1.73 square meters End Stage Renal Disease: Less than 15 mL/min/1.73 square meters Performed By: #### A 1C, GFR, TSH, ANEU, ADIFF, FT4, VIDH, LIPID, LDLDCT, CMP, CBC #### [address] [address] .NEUABSon 05-11-2023 Neutrophil, Absolute 2.5 10 3/mcL Low 2.9-6.2 [facility] ([place]) Comment on above: Performed By: #### A 1C, GFR, TSH, ANEU, ADIFF, FT4, VIDH, LIPID, LDLDCT, CMP, CBC #### [address] [address] A1Con 05-11-2023 HbA1c (Bld) [Mass fraction] 5.7 % Normal 4.3-6.4 [facility] ([place]) Comment on above: Performed By: #### A 1C, GFR, TSH, ANEU, ADIFF, FT4, VIDH, LIPID, LDLDCT, CMP, CBC #### [place] [id number] CBCon 05-11-2023 Erythrocyte distribution width (RBC) [Ratio] 15.3 % High 11.5-14.5 [facility] ([place]) Comment on above: Performed By: #### A 1C, GFR, TSH, ANEU, ADIFF, FT4, VIDH, LIPID, LDLDCT, CMP, CBC #### [address] [address] Hematocrit (Bld) [Volume fraction] 41.0 % Low 42.0-52.0 [facility] ([place]) Comment on above: Performed By: #### A 1C, GFR, TSH, ANEU, ADIFF, FT4, VIDH, LIPID, LDLDCT, CMP, CBC #### [place] [address] Hgb 13.8 G/dL Low 14.0-18.0 [facility] ([place]) Comment on above: Performed By: #### A 1C, GFR, TSH, ANEU, ADIFF, FT4, VIDH, LIPID, LDLDCT, CMP, CBC #### [address] [address] MCH (RBC) [Entitic mass] 28.9 pg Normal 27.0-31.2 [facility] ([place]) Comment on above: Performed By: #### A 1C, GFR, TSH, ANEU, ADIFF, FT4, VIDH, LIPID, LDLDCT, CMP, CBC #### [address] [address] MCHC 33.6 G/dL Normal 31.8-35.4 [facility] ([place]) Comment on above: Performed By: #### A 1C, GFR, TSH, ANEU, ADIFF, FT4, VIDH, LIPID, LDLDCT, CMP, CBC #### [address] [address] MCV (RBC) [Entitic vol] 86.2 fL Normal 80.0-94.0 [facility] ([place]) Comment on above: Performed By: #### A 1C, GFR, TSH, ANEU, ADIFF, FT4, VIDH, LIPID, LDLDCT, CMP, CBC #### [address] [address] Platelet 139 10 3/mcL Normal 130-400 [facility] ([place]) Comment on above: Performed By: #### A 1C, GFR, TSH, ANEU, ADIFF, FT4, VIDH, LIPID, LDLDCT, CMP, CBC #### [address] [address] Platelet mean volume (Bld) [Entitic vol] 10.0 fL Normal 7.4-10.4 [facility] ([place]) Comment on above: Performed By: #### A 1C, GFR, TSH, ANEU, ADIFF, FT4, VIDH, LIPID, LDLDCT, CMP, CBC #### [address] [address] RBC 4.76 10 6/mcL Normal 4.04-6.13 [facility] ([place]) Comment on above: Performed By: #### A 1C, GFR, TSH, ANEU, ADIFF, FT4, VIDH, LIPID, LDLDCT, CMP, CBC #### [address] [address] WBC 4.0 10 3/mcL Low 4.6-10.8 [facility] ([place]) Comment on above: Performed By: #### A 1C, GFR, TSH, ANEU, ADIFF, FT4, VIDH, LIPID, LDLDCT, CMP, CBC #### [address] [address] CMPon 05-11-2023 Albumin Level 3.9 G/dL Normal 3.4-4.8 [facility] ([place]) Comment on above: Performed By: #### A 1C, GFR, TSH, ANEU, ADIFF, FT4, VIDH, LIPID, LDLDCT, CMP, CBC #### [address] [address] Albumin/Globulin [Mass ratio] 1.3 {ratio} Normal 1.1-2.5 [facility] ([place]) Comment on above: Performed By: #### A 1C, GFR, TSH, ANEU, ADIFF, FT4, VIDH, LIPID, LDLDCT, CMP, CBC #### [address] [address] ALP [Catalytic activity/Vol] 92 U/L Normal 40-135 [facility] ([place]) Comment on above: Performed By: #### A 1C, GFR, TSH, ANEU, ADIFF, FT4, VIDH, LIPID, LDLDCT, CMP, CBC #### [address] [address] ALT [Catalytic activity/Vol] 50 U/L Normal 16-63 [facility] ([place]) Comment on above: Performed By: #### A 1C, GFR, TSH, ANEU, ADIFF, FT4, VIDH, LIPID, LDLDCT, CMP, CBC #### [address] [address] AST [Catalytic activity/Vol] 30 U/L Normal 10-40 [facility] ([place]) Comment on above: Performed By: #### A 1C, GFR, TSH, ANEU, ADIFF, FT4, VIDH, LIPID, LDLDCT, CMP, CBC #### [address] [address] Bili Total 0.5 mg/dL Normal 0.2-1.0 [facility] ([place]) Comment on above: Result Comment: Use of this assay is not recommended for patients undergoing treatment with eltrombopag due to the potential for falsely elevated results. Performed By: #### A 1C, GFR, TSH, ANEU, ADIFF, FT4, VIDH, LIPID, LDLDCT, CMP, CBC #### [address] [address] BUN/Creatinine Ratio 12 ratio Normal 7-27 [facility] ([place]) Comment on above: Performed By: #### A 1C, GFR, TSH, ANEU, ADIFF, FT4, VIDH, LIPID, LDLDCT, CMP, CBC #### [address] [address] Calcium [Mass/Vol] 9.2 mg/dL Normal 8.4-10.2 [facility] ([place]) Comment on above: Performed By: #### A 1C, GFR, TSH, ANEU, ADIFF, FT4, VIDH, LIPID, LDLDCT, CMP, CBC #### [address] [address] Chloride [Moles/Vol] 106 mmol/L Normal 98-107 [facility] ([place]) Comment on above: Performed By: #### A 1C, GFR, TSH, ANEU, ADIFF, FT4, VIDH, LIPID, LDLDCT, CMP, CBC #### [address] [address] CO2 [Moles/Vol] 31 mmol/L Normal 23-31 [facility] ([place]) Comment on above: Performed By: #### A 1C, GFR, TSH, ANEU, ADIFF, FT4, VIDH, LIPID, LDLDCT, CMP, CBC #### [address] [address] Creatinine [Mass/Vol] 0.89 mg/dL Normal 0.70-1.30 [facility] ([place]) Comment on above: Performed By: #### A 1C, GFR, TSH, ANEU, ADIFF, FT4, VIDH, LIPID, LDLDCT, CMP, CBC #### [address] [address] Electrolyte Balance 7.0 mEq/L Normal 4.0-15.0 [facility] ([place]) Comment on above: Performed By: #### A 1C, GFR, TSH, ANEU, ADIFF, FT4, VIDH, LIPID, LDLDCT, CMP, CBC #### [address] [address] Globulin 3.0 G/dL Normal [facility] ([place]) Comment on above: Performed By: #### A 1C, GFR, TSH, ANEU, ADIFF, FT4, VIDH, LIPID, LDLDCT, CMP, CBC #### [address] [address] Glucose [Mass/Vol] 104 mg/dL Normal 83-110 [facility] ([place]) Comment on above: Performed By: #### A 1C, GFR, TSH, ANEU, ADIFF, FT4, VIDH, LIPID, LDLDCT, CMP, CBC #### [address] [address] Potassium [Moles/Vol] 4.6 mmol/L Normal 3.5-5.1 [facility] ([place]) Comment on above: Performed By: #### A 1C, GFR, TSH, ANEU, ADIFF, FT4, VIDH, LIPID, LDLDCT, CMP, CBC #### [address] [address] Sodium [Moles/Vol] 144 mmol/L Normal 136-145 [facility] ([place]) Comment on above: Performed By: #### A 1C, GFR, TSH, ANEU, ADIFF, FT4, VIDH, LIPID, LDLDCT, CMP, CBC #### [address] [address] Total Protein 6.9 G/dL Normal 6.4-8.2 [facility] ([place]) Comment on above: Performed By: #### A 1C, GFR, TSH, ANEU, ADIFF, FT4, VIDH, LIPID, LDLDCT, CMP, CBC #### [address] [address] Urea nitrogen [Mass/Vol] 11 mg/dL Normal 7-18 [facility] ([place]) Comment on above: Performed By: #### A 1C, GFR, TSH, ANEU, ADIFF, FT4, VIDH, LIPID, LDLDCT, CMP, CBC #### [place] [address] [place], [place] [address] FT4on 05-11-2023 Free T4 [Mass/Vol] 0.95 ng/dL Normal 0.76-1.46 [facility] ([place]) Comment on above: Performed By: #### A 1C, GFR, TSH, ANEU, ADIFF, FT4, VIDH, LIPID, LDLDCT, CMP, CBC #### [place] [address] [place], [place] [address] LABORATORYOrdered By: SYSTEM SYSTEM on 05-11-2023 25-hydroxyvitamin D3 [Mass/Vol] 61.3 ng/mL Invalid Interpretation Code AO ADM SS Comment on above: Interpretive Data: I nterpretive Values Based on Total 25(OH) Vitamin D: Deficient <20 ng/mL Insufficient 20 - <30 ng/mL Sufficient 30-100 ng/mL Albumin BCP dye [Mass/Vol] 3.9 G/dL Invalid Interpretation Code 3.4 - 4.8 G/dL AO ADM SS Albumin/Globulin [Mass ratio] 1.3 {ratio} Invalid Interpretation Code 1.1 - 2.5 ratio AO ADM SS ALP [Catalytic activity/Vol] 92 U/L Invalid Interpretation Code 40 - 135 U/L AO ADM SS ALT With P-5'-P [Catalytic activity/Vol] 50 U/L Invalid Interpretation Code 16 - 63 U/L AO ADM SS AST With P-5'-P [Catalytic activity/Vol] 30 U/L Invalid Interpretation Code 10 - 40 U/L AO ADM SS Basophil, Absolute 0.0 103/mcL Invalid Interpretation Code 0.0 - 0.2 10^3/mcL AO Workflow SS Basophils/100 WBC (Bld) 0.7 % Invalid Interpretation Code 0.0 - 2.5 % AO Workflow SS Bilirubin [Mass/Vol] 0.5 mg/dL Invalid Interpretation Code 0.2 - 1.0 mg/dL AO ADM SS Comment on above: Interpretive Data: U se of this assay is not recommended for patients undergoing treatment with eltrombopag due to the potential for falsely elevated results. Calcium [Mass/Vol] 9.2 mg/dL Invalid Interpretation Code 8.4 - 10.2 mg/dL AO ADM SS Chloride [Moles/Vol] 106 mmol/L Invalid Interpretation Code 98 - 107 mmol/L AO ADM SS CO2 [Moles/Vol] 31 mmol/L Invalid Interpretation Code 23 - 31 mmol/L AO ADM SS Creatinine [Mass/Vol] 0.89 mg/dL Invalid Interpretation Code 0.70 - 1.30 mg/dL AO ADM SS Electrolyte Balance 7.0 mEq/L Invalid Interpretation Code 4.0 - 15.0 mEq/L AO ADM SS Eosinophil, Absolute 0.1 103/mcL Invalid Interpretation Code 0.0 - 0.4 10^3/mcL AO Workflow SS Eosinophils/100 WBC (Bld) 2.0 % Invalid Interpretation Code 0.0 - 7.0 % AO Workflow SS Erythrocyte distribution width (RBC) [Ratio] 15.3 % Invalid Interpretation Code 11.5 - 14.5 % AO Workflow SS Free T4 [Mass/Vol] 0.95 ng/dL Invalid Interpretation Code 0.76 - 1.46 ng/dL AO ADM SS GFR/1.73 sq M.predicted among blacks MDRD (S/P/Bld) [Vol rate/Area] 99 ml/min/1.73sqm Invalid Interpretation Code AO Chemistry S Comment on above: Interpretive Data: GFR Population mean for , Non- Americans Ages 20-29 = 116 mL/min/1.73 sq.m. Ages 30-39 = 107 mL/min/1.73 sq.m. Ages 40-49 = 99 mL/min/1.73 sq.m. Ages 50-59 = 93 mL/min/1.73 sq.m. Ages 60-69 = 85 mL/min/1.73 sq.m. Ages 70+ = 75 mL/min/1.73 sq.m. Chronic Kidney Disease: Less than 60 mL/min/1.73 square meters End Stage Renal Disease: Less than 15 mL/min/1.73 square meters GFR/1.73 sq M.predicted among non-blacks MDRD (S/P/Bld) [Vol rate/Area] 82 ml/min/1.73sqm Invalid Interpretation Code AO Chemistry S Comment on above: Interpretive Data: GFR Population mean for , Non- Americans Ages 20-29 = 116 mL/min/1.73 sq.m. Ages 30-39 = 107 mL/min/1.73 sq.m. Ages 40-49 = 99 mL/min/1.73 sq.m. Ages 50-59 = 93 mL/min/1.73 sq.m. Ages 60-69 = 85 mL/min/1.73 sq.m. Ages 70+ = 75 mL/min/1.73 sq.m. Chronic Kidney Disease: Less than 60 mL/min/1.73 square meters End Stage Renal Disease: Less than 15 mL/min/1.73 square meters Globulin 3.0 G/dL Invalid Interpretation Code AO ADM SS Glucose [Mass/Vol] 104 mg/dL Invalid Interpretation Code 83 - 110 mg/dL AO ADM SS HbA1c (Bld) [Mass fraction] 5.7 % Invalid Interpretation Code 4.3 - 6.4 % AO ADM SS Hematocrit (Bld) [Volume fraction] 41.0 % Invalid Interpretation Code 42.0 - 52.0 % AO Workflow SS Hemoglobin (Bld) [Mass/Vol] 13.8 G/dL Invalid Interpretation Code 14.0 - 18.0 G/dL AO Workflow SS Lymphocyte, Absolute 1.1 103/mcL Invalid Interpretation Code 0.8 - 3.9 10^3/mcL AO Workflow SS Lymphocytes/100 WBC (Bld) 27.9 % Invalid Interpretation Code 10.0 - 50.0 % AO Workflow SS MCH (RBC) [Entitic mass] 28.9 pg Invalid Interpretation Code 27.0 - 31.2 pg AO Workflow SS MCHC 33.6 G/dL Invalid Interpretation Code 31.8 - 35.4 G/dL AO Workflow SS MCV (RBC) [Entitic vol] 86.2 fL Invalid Interpretation Code 80.0 - 94.0 fL AO Workflow SS Monocyte, Absolute 0.2 103/mcL Invalid Interpretation Code 0.2 - 1.0 10^3/mcL AO Workflow SS Monocytes/100 WBC (Bld) 6.3 % Invalid Interpretation Code 1.7 - 13.0 % AO Workflow SS Neutrophil, Absolute 2.5 103/mcL Invalid Interpretation Code 2.9 - 6.2 10^3/mcL AO Workflow SS Neutrophils/100 WBC (Bld) 63.1 % Invalid Interpretation Code 37.0 - 80.0 % AO Workflow SS Platelet mean volume (Bld) [Entitic vol] 10.0 fL Invalid Interpretation Code 7.4 - 10.4 fL AO Workflow SS Platelets (Bld) [#/Vol] 139 103/mcL Invalid Interpretation Code 130 - 400 10^3/mcL AO Workflow SS Potassium [Moles/Vol] 4.6 mmol/L Invalid Interpretation Code 3.5 - 5.1 mmol/L AO ADM SS Protein [Mass/Vol] 6.9 G/dL Invalid Interpretation Code 6.4 - 8.2 G/dL AO ADM SS RBC (Bld) [#/Vol] 4.76 106/mcL Invalid Interpretation Code 4.04 - 6.13 10^6/mcL AO Workflow SS Sodium [Moles/Vol] 144 mmol/L Invalid Interpretation Code 136 - 145 mmol/L AO ADM SS TSH Qn 0.84 m[IU]/L Invalid Interpretation Code 0.36 - 3.74 mcIU/mL AO ADM SS Urea nitrogen [Mass/Vol] 11 mg/dL Invalid Interpretation Code 7 - 18 mg/dL AO ADM SS Urea nitrogen/Creatinine [Mass ratio] 12 ratio Invalid Interpretation Code 7 - 27 ratio AO ADM SS WBC (Bld) [#/Vol] 4.0 103/mcL Invalid Interpretation Code 4.6 - 10.8 10^3/mcL AO Workflow SS LABORATORYOrdered By: Gisella Astorga on 05-11-2023 Cholesterol [Mass/Vol] 232 mg/dL Invalid Interpretation Code 0 - 200 mg/dL AO ADM SS Comment on above: Interpretive Data: C holesterol Reference Interval: Less than 200 Desirable 200-239 Borderline high risk 240 and above High risk Cholesterol in HDL [Mass/Vol] 44 mg/dL Invalid Interpretation Code 40 - 60 mg/dL AO ADM SS Cholesterol in LDL [Mass/Vol] 138 mg/dL Invalid Interpretation Code 0 - 130 mg/dL AO ADM SS Triglyceride [Mass/Vol] 252 mg/dL Invalid Interpretation Code 0 - 150 mg/dL AO ADM SS Comment on above: Interpretive Data: T riglyceride Reference Interval: Less than 150 Normal 150-199 Borderline high risk 200-499 High risk 500 or higher Very high risk LIPIDon 05-11-2023 Cholesterol [Mass/Vol] 232 mg/dL High 0-200 [facility] ([place]) Comment on above: Result Comment: Chol esterol Reference Interval: Less than 200 Desirable 200-239 Borderline high risk 240 and above High risk Performed By: #### A 1C, GFR, TSH, ANEU, ADIFF, FT4, VIDH, LIPID, LDLDCT, CMP, CBC #### Sean [place] [address] [place], [place] [address] Cholesterol in HDL [Mass/Vol] 44 mg/dL Normal 40-60 [facility] ([place]) Comment on above: Performed By: #### A 1C, GFR, TSH, ANEU, ADIFF, FT4, VIDH, LIPID, LDLDCT, CMP, CBC #### [address] [address] Cholesterol in LDL [Mass/Vol] 138 mg/dL High 0-130 [facility] ([place]) Comment on above: Performed By: #### A 1C, GFR, TSH, ANEU, ADIFF, FT4, VIDH, LIPID, LDLDCT, CMP, CBC #### [address] [address] Triglyceride [Mass/Vol] 252 mg/dL High 0-150 [facility] ([place]) Comment on above: Result Comment: Trig lyceride Reference Interval: Less than 150 Normal 150-199 Borderline high risk 200-499 High risk 500 or higher Very high risk Performed By: #### A 1C, GFR, TSH, ANEU, ADIFF, FT4, VIDH, LIPID, LDLDCT, CMP, CBC #### [address] [address] TSHon 05-11-2023 TSH Qn 0.84 m[IU]/L Normal 0.36-3.74 [facility] ([place]) Comment on above: Performed By: #### A 1C, GFR, TSH, ANEU, ADIFF, FT4, VIDH, LIPID, LDLDCT, CMP, CBC #### [address] [address] VIDHon 05-11-2023 Vit. D 25-Hydroxy 61.3 ng/mL Normal [facility] ([place]) Comment on above: Result Comment: Inte rpretive Values Based on Total 25(OH) Vitamin D: Deficient <20 ng/mL Insufficient 20 - <30 ng/mL Sufficient 30-100 ng/mL Performed By: #### A 1C, GFR, TSH, ANEU, ADIFF, FT4, VIDH, LIPID, LDLDCT, CMP, CBC #### [address] [address] No Panel InformationOrdered By: Damon Garrett on 03-30-2023 Prostate Specific Antigen Total < 0.01 ng/mL 0.0-4.0 [facility] Comment on above: This test was perfor med using the TPSA assay method for the[employer] chemistry system. Values obtained with differentassay methods cannot be used interchangably.When changing PSA assays in the course of monitoring apatient, additional sequential testing should be carriedout to confirm baseline values. No Panel InformationOrdered By: Dr. Garrett on 09-21-2022 Prostate Specific Antigen Total < 0.01 ng/mL 0.0-4.0 [facility] Comment on above: This test was perfor med using the TPSA assay method for the[facility]. Values obtained with differentassay methods cannot be used interchangably.When changing PSA assays in the course of monitoring apatient, additional sequential testing should be carriedout to confirm baseline values. Basophil percentageon 2021 Creatinine [Mass/Vol] 0.9 mg/dL 0.70-1.30 [facility] Work Phone: No Panel Informationon 04-16 Bedside Estimated GFR (eGFR) > 60.0000 mL/min >60 [facility] Work Phone: Basophil percentageon 2021 Basophil percentage < 0.9 mg/dL 0.70-1.30 [facility] Work Phone: No Panel Informationon 03-13 Bedside Estimated GFR (eGFR) > 60.0000 mL/min >60 [facility] Work Phone: LABORATORYOrdered By: Yusef White on 12-01-2021 Albumin BCP dye [Mass/Vol] 3.8 G/dL Invalid Interpretation Code 3.4 - 4.8 G/dL AO ADM SS Albumin/Globulin [Mass ratio] 1.3 {ratio} Invalid Interpretation Code 1.1 - 2.5 ratio AO ADM SS ALP [Catalytic activity/Vol] 74 U/L Invalid Interpretation Code 40 - 135 U/L AO ADM SS ALT With P-5'-P [Catalytic activity/Vol] 44 U/L Invalid Interpretation Code 16 - 63 U/L AO ADM SS AST With P-5'-P [Catalytic activity/Vol] 32 U/L Invalid Interpretation Code 10 - 40 U/L AO ADM SS Bilirubin [Mass/Vol] 0.6 mg/dL Invalid Interpretation Code 0.2 - 1.0 mg/dL AO ADM SS Calcium [Mass/Vol] 9.0 mg/dL Invalid Interpretation Code 8.4 - 10.2 mg/dL AO ADM SS Chloride [Moles/Vol] 106 mmol/L Invalid Interpretation Code 98 - 107 mmol/L AO ADM SS Cholesterol [Mass/Vol] 269 mg/dL Invalid Interpretation Code 0 - 200 mg/dL AO ADM SS Cholesterol in HDL [Mass/Vol] 54 mg/dL Invalid Interpretation Code 40 - 60 mg/dL AO ADM SS Cholesterol in LDL [Mass/Vol] 180 mg/dL Invalid Interpretation Code 0 - 130 mg/dL AO ADM SS CO2 [Moles/Vol] 29 mmol/L Invalid Interpretation Code 23 - 31 mmol/L AO ADM SS Creatinine [Mass/Vol] 0.98 mg/dL Invalid Interpretation Code 0.70 - 1.30 mg/dL AO ADM SS Electrolyte Balance 9.0 mEq/L Invalid Interpretation Code 4.0 - 15.0 mEq/L AO ADM SS Globulin 2.9 G/dL Invalid Interpretation Code AO ADM SS Glucose [Mass/Vol] 119 mg/dL Invalid Interpretation Code 83 - 110 mg/dL AO ADM SS Potassium [Moles/Vol] 4.2 mmol/L Invalid Interpretation Code 3.5 - 5.1 mmol/L AO ADM SS Prostate specific Ag [Mass/Vol] 10.64 ng/mL Invalid Interpretation Code 0.00 - 4.00 ng/mL AO ADM SS Protein [Mass/Vol] 6.7 G/dL Invalid Interpretation Code 6.4 - 8.2 G/dL AO ADM SS Sodium [Moles/Vol] 144 mmol/L Invalid Interpretation Code 136 - 145 mmol/L AO ADM SS Triglyceride [Mass/Vol] 173 mg/dL Invalid Interpretation Code 0 - 150 mg/dL AO ADM SS Urea nitrogen [Mass/Vol] 14 mg/dL Invalid Interpretation Code 7 - 18 mg/dL AO ADM SS Urea nitrogen/Creatinine [Mass ratio] 14 ratio Invalid Interpretation Code 7 - 27 ratio AO ADM SS LABORATORYOrdered By: SYSTEM SYSTEM on 12-01-2021 GFR 89 ml/min/1.73sqm Invalid Interpretation Code AO Chemistry S GFR Non- 74 ml/min/1.73sqm Invalid Interpretation Code AO Chemistry S Vital Signs Date Time Vital Sign Value Performing Clinician Drew renae 11-02-2024 14:22-0500 Body height 187.[address] Lamberto Mckeon DO Work Phone: [facility] 11-02-2024 14:22-0500 Body mass index (BMI) [Ratio] 30.4 kg/m2 Dr. Lamberto Mckeon DO Work Phone: [facility] 11-02-2024 14:22-0500 Body temperature 97.2 [degF] Dr. Lamberto Mckeon DO Work Phone: [facility] 11-02-2024 14:22-0500 Body weight 107.[address] Lamberto Mckeon DO Work Phone: [facility] 11-02-2024 14:22-0500 Diastolic blood pressure 88 mm[Hg] Dr. Lamberto Mckeon DO Work Phone: [facility] 11-02-2024 14:22-0500 Heart rate 83 /min Dr. Lamberto Mckeon DO Work Phone: [facility] 11-02-2024 14:22-0500 Respiratory rate 18 /min Dr. Lamberto Mckeon DO Work Phone: [facility] 11-02-2024 14:22-0500 SaO2% (BldA) [Mass fraction] 98 % Dr. Lamberto Mckeon DO Work Phone: [facility] 11-02-2024 14:22-0500 Systolic blood pressure 162 mm[Hg] Dr. Lamberto Mckeon DO Work Phone: [facility] 07-06-2023 14:17-0500 Body height 187.[address] Lamberto Mckeon Work Phone: [facility] 07-06-2023 14:17-0500 Body mass index (BMI) [Ratio] 28.2 kg/m2 Dr. Lamberto Mckeon Work Phone: [facility] 07-06-2023 14:17-0500 Body temperature 98.6 [degF] Dr. Lamberto Mckeon Work Phone: [facility] 07-06-2023 14:17-0500 Body weight 99.[address] Lamberto Mckeon Work Phone: [facility] 07-06-2023 14:17-0500 Diastolic blood pressure 83 mm[Hg] Dr. Lamberto Mckeon Work Phone: [facility] 07-06-2023 14:17-0500 Heart rate 84 /min Dr. Lamberto Mckeon Work Phone: [facility] 07-06-2023 14:17-0500 Respiratory rate 18 /min Dr. Lamberto Mckeon Work Phone: [facility] 07-06-2023 14:17-0500 SaO2% (BldA) [Mass fraction] 94 % Dr. Lamberto Mckeon Work Phone: [facility] 07-06-2023 14:17-0500 Systolic blood pressure 144 mm[Hg] Dr. Lamberto Mckeon Work Phone: [facility] 01-05-2023 14:03-0400 Body height 187.[address] Lamberto Mckeon Work Phone: [facility] 01-05-2023 14:00-0400 Body mass index (BMI) [Ratio] 28.2 kg/m2 Dr. Lamberto Mckeon Work Phone: [facility] 01-05-2023 14:00-0400 Body temperature 97.9 [degF] Dr. Lamberto Mckeon Work Phone: [facility] 01-05-2023 14:00-0400 Body weight 99.[address] Lamberto Mckeon Work Phone: [facility] 01-05-2023 14:00-0400 Diastolic blood pressure 72 mm[Hg] Dr. Lamberto Mckeon Work Phone: [facility] 01-05-2023 14:00-0400 Heart rate 67 /min Dr. Lamberto Mckeon Work Phone: [facility] 01-05-2023 14:00-0400 Respiratory rate 16 /min Dr. Lamberto Mckeon Work Phone: [facility] 01-05-2023 14:00-0400 SaO2% (BldA) [Mass fraction] 96 % Dr. Lamberto Mckeon Work Phone: [facility] 01-05-2023 14:00-0400 Systolic blood pressure 153 mm[Hg] Dr. Lamberto Mckeon Work Phone: [facility] 09-17-2022 11:40-0500 Body temperature 98.5 [degF] Dr. Stiven Rangel Work Phone: [facility] 09-17-2022 11:40-0500 Diastolic blood pressure 60 mm[Hg] Dr. Stiven Rangel Work Phone: [facility] 09-17-2022 11:40-0500 Heart rate 70 /min Dr. Stiven Rangel Work Phone: [facility] 09-17-2022 11:40-0500 Respiratory rate 16 /min Dr. Stiven Rangel Work Phone: [facility] 09-17-2022 11:40-0500 SaO2% (BldA) [Mass fraction] 96 % Dr. tSiven Rangel Work Phone: [facility] 09-17-2022 11:40-0500 Systolic blood pressure 113 mm[Hg] Dr. Stiven Rangel Work Phone: [facility] 09-17-2022 10:29-0500 Body height 187.[address] Stiven Rangel Work Phone: [facility] 09-17-2022 10:29-0500 Body mass index (BMI) [Ratio] 28 kg/m2 Dr. Stiven Rangel Work Phone: [facility] 09-17-2022 10:29-0500 Body weight 99.[address] Stiven Rangel Work Phone: [facility] 07-22-2022 09:20-0500 Body mass index (BMI) [Ratio] 28.8 kg/m2 Dr. Stiven Rangel Work Phone: [facility] 07-22-2022 09:20-0500 Body weight 99.[address] Stiven Rangel Work Phone: [facility] 07-22-2022 09:20-0500 Diastolic blood pressure 77 mm[Hg] Dr. Stiven Rangel Work Phone: [facility] 07-22-2022 09:20-0500 Heart rate 70 /min Dr. Stiven Rangel Work Phone: [facility] 07-22-2022 09:20-0500 SaO2% (BldA) [Mass fraction] 97 % Dr. Stiven Rangel Work Phone: [facility] 07-22-2022 09:20-0500 Systolic blood pressure 149 mm[Hg] Dr. Stiven Rangel Work Phone: [facility] 07-06-2022 14:04-0500 Body mass index (BMI) [Ratio] 28.6 kg/m2 Dr. Stiven Rangel Work Phone: [facility] 07-06-2022 14:04-0500 Body temperature 97.1 [degF] Dr. Stiven Rangel Work Phone: [facility] 07-06-2022 14:04-0500 Body weight 98.[address] Stiven Rangel Work Phone: [facility] 07-06-2022 14:04-0500 Diastolic blood pressure 78 mm[Hg] Dr. Stiven Rangel Work Phone: [facility] 07-06-2022 14:04-0500 Heart rate 70 /min Dr. Stiven Rangel Work Phone: [facility] 07-06-2022 14:04-0500 Respiratory rate 16 /min Dr. Stiven Rangel Work Phone: [facility] 07-06-2022 14:04-0500 SaO2% (BldA) [Mass fraction] 100 % Dr. Stiven Rangel Work Phone: [facility] 07-06-2022 14:04-0500 Systolic blood pressure 159 mm[Hg] Dr. Stiven Rangel Work Phone: [facility] 06-03-2022 13:28-0400 Body mass index (BMI) [Ratio] 28.8 kg/m2 Dr. Stiven Rangel Work Phone: [facility] 06-03-2022 13:28-0400 Body temperature 97.1 [degF] Dr. Stiven Rangel Work Phone: [facility] 06-03-2022 13:28-0400 Body weight 98.[address] Stiven Rangel Work Phone: [facility] 06-03-2022 13:28-0400 Diastolic blood pressure 69 mm[Hg] Dr. Stiven Rangel Work Phone: [facility] 06-03-2022 13:28-0400 Heart rate 71 /min Dr. Stiven Rangel Work Phone: [facility] 06-03-2022 13:28-0400 Respiratory rate 16 /min Dr. Stiven Rangel Work Phone: [facility] 06-03-2022 13:28-0400 SaO2% (BldA) [Mass fraction] 98 % Dr. Stiven Rangel Work Phone: [facility] 06-03-2022 13:28-0400 Systolic blood pressure 157 mm[Hg] Dr. Stiven Rangel Work Phone: [facility] 05-27-2022 13:25-0400 Body mass index (BMI) [Ratio] 28.8 kg/m2 Dr. Stiven Rangel Work Phone: [facility] 05-27-2022 13:25-0400 Body temperature 97.1 [degF] Dr. Stiven Rangel Work Phone: [facility] 05-27-2022 13:25-0400 Body weight 98.[address] Stiven Rangel Work Phone: [facility] 05-27-2022 13:25-0400 Diastolic blood pressure 96 mm[Hg] Dr. Stiven Rangel Work Phone: [facility] 05-27-2022 13:25-0400 Heart rate 72 /min Dr. Stiven Rangel Work Phone: [facility] 05-27-2022 13:25-0400 Respiratory rate 16 /min Dr. Stiven Rangel Work Phone: [facility] 05-27-2022 13:25-0400 SaO2% (BldA) [Mass fraction] 99 % Dr. Stiven Rangel Work Phone: [facility] 05-27-2022 13:25-0400 Systolic blood pressure 151 mm[Hg] Dr. Stiven Rangel Work Phone: [facility] 05-20-2022 13:35-0400 Body mass index (BMI) [Ratio] 28.5 kg/m2 Dr. Stiven Rangel Work Phone: [facility] 05-20-2022 13:35-0400 Body temperature 97.4 [degF] Dr. Stiven Rangel Work Phone: [facility] 05-20-2022 13:35-0400 Body weight 98.[address] Stiven Rangel Work Phone: [facility] 05-20-2022 13:35-0400 Diastolic blood pressure 68 mm[Hg] Dr. Stiven Rangel Work Phone: [facility] 05-20-2022 13:35-0400 Heart rate 89 /min Dr. Stiven Rangel Work Phone: [facility] 05-20-2022 13:35-0400 Respiratory rate 16 /min Dr. Stiven Rangel Work Phone: [facility] 05-20-2022 13:35-0400 SaO2% (BldA) [Mass fraction] 96 % Dr. Stiven Rangel Work Phone: [facility] 05-20-2022 13:35-0400 Systolic blood pressure 134 mm[Hg] Dr. Stiven Rangel Work Phone: [facility] 04-10-2022 13:00-0400 Body temperature 97.8 [degF] Dr. Jerome Benjamin Work Phone: [facility] Work Phone: 04-10-2022 13:00-0400 Diastolic blood pressure 66 mm[Hg] Dr. Jerome Benjamin Work Phone: [facility] Work Phone: 04-10-2022 13:00-0400 Heart rate 59 /min Dr. Jerome Benjamin Work Phone: [facility] Work Phone: 04-10-2022 13:00-0400 Respiratory rate 16 /min Dr. Jerome Benjamin Work Phone: [facility] Work Phone: 04-10-2022 13:00-0400 SaO2% (BldA) [Mass fraction] 97 % Dr. Jerome Benjamin Work Phone: [facility] Work Phone: 04-10-2022 13:00-0400 Systolic blood pressure 132 mm[Hg] Dr. Jerome Benjamin Work Phone: [facility] Work Phone: 04-10-2022 10:40-0400 Body height 185.[address] Jerome Benjamin Work Phone: [facility] Work Phone: 04-10-2022 10:40-0400 Body mass index (BMI) [Ratio] 27.7 kg/m2 Dr. Jerome Benjamin Work Phone: [facility] Work Phone: 04-10-2022 10:40-0400 Body weight 95.[address] Jerome Benjamin Work Phone: [facility] Work Phone: 03-05-2022 15:14-0400 Body height 185.[address] Jerome Benjamin Work Phone: [facility] Work Phone: 03-05-2022 15:11-0400 Body mass index (BMI) [Ratio] 28.8 kg/m2 Dr. Jerome Benjamin Work Phone: [facility] Work Phone: 03-05-2022 15:11-0400 Body temperature 98.4 [degF] Dr. Jerome Benjamin Work Phone: [facility] Work Phone: 03-05-2022 15:11-0400 Body weight 99.[address] Jerome Benjamin Work Phone: [facility] Work Phone: 03-05-2022 15:11-0400 Diastolic blood pressure 70 mm[Hg] Dr. Jerome Benjamin Work Phone: [facility] Work Phone: 03-05-2022 15:11-0400 Heart rate 66 /min Dr. Jerome Benjamin Work Phone: [facility] Work Phone: 03-05-2022 15:11-0400 Respiratory rate 16 /min Dr. Jerome Benjamin Work Phone: [facility] Work Phone: 03-05-2022 15:11-0400 SaO2% (BldA) [Mass fraction] 96 % Dr. Jerome Benjamin Work Phone: [facility] Work Phone: 03-05-2022 15:11-0400 Systolic blood pressure 139 mm[Hg] Dr. Jerome Benjamin Work Phone: [facility] Work Phone: Encounters Encounter Date Encounter Type Care Provider Facility Start: 01-31-2025 ambulatory Lamberto Mckeon Facility: [facility] Start: 01-23-2025 End: 01-23-[address] Lamberto Mckeon DO Work Phone: [facility] Work Phone: Start: 01-23-2025 End: 01-23-[address] Damon Garrett MD -Laboratory Work Phone: Start: 01-23-2025 End: 01-23-2025 ambulatory Damon Garrett Facility:[facility] Start: 01-05-2025 End: 01-09-2025 ambulatory LAMBERTO MCKEON DO Facility[facility] Start: 01-05-2025 End: 01-09-2025 Encounter for general adult medical examination without abnormal findings LAMBERTO MCKEON DO Facility:[facility] Start: 01-05-2025 End: 01-09-2025 Outreach Lab LAMBERTO MCKEON DO [facility] Start: 01-05-2025 End: 01-09-2025 ambulatory LAMBERTO MCKEON DO Facility:[facility] Start: 01-05-2025 End: 01-09-2025 Outreach Lab LAMBERTO MCKEON DO [facility] Start: 11-02-[address] Jerome Benjamin DO -[facility] Start: 11-02-2024 End: 11-02-[address] Jerome Benjamin DO -[facility] Work Phone: Start: 11-02-2024 End: 11-02-2024 ambulatory Jerome Benjamin Facility:[facility] Start: 07-06-2024 End: 07-06-2024 ambulatory Jerome Benjamin Facility:[facility] Start: 05-29-2024 End: 05-29-2024 ambulatory LAMBERTO MCKEON DO Facility:[facility] Start: 05-29-2024 End: 05-29-2024 Patient encounter procedure LAMBERTO MCKEON DO [facility] Start: 04-04-2024 End: 04-04-2024 ambulatory Fabiola Raleigh Facility:[facility] Start: 03-06-2024 End: 03-10-2024 ambulatory [employer] Facility:[facility] Start: 03-06-2024 End: 03-10-2024 Outreach Lab [employer] [facility] Start: 09-30-2023 End: 09-30-[address] Lamberto Mckeon Work Phone: [facility] Work Phone: Start: 09-30-2023 End: 09-30-[address] Lamberto Mckeon Work Phone: [facility]-Laboratory Work Phone: Start: 07-06-2023 End: 07-06-[address] Lamberto Mckeon Work Phone: [facility] Work Phone: Start: 07-05-2023 End: 07-05-[address] Lamberto Mckeon Work Phone: [facility]-Laboratory Work Phone: Start: 05-11-2023 End: 05-11-2023 ambulatory LAMBERTO MCKEON DO Facility:[facility] Start: 05-11-2023 End: 05-11-2023 Patient encounter procedure LAMBERTO MCKEON DO [facility] Start: 03-30-2023 End: 03-30-[address] Lamberto Mckeon Work Phone: [facility] Work Phone: Start: 03-30-2023 End: 03-30-[address] Lamberto Mckeon Work Phone: [facility]-Laboratory Work Phone: Start: 01-05-2023 End: 01-05-[address] Lamberto Mckeon Work Phone: [facility] Work Phone: Start: 11-06-2022 End: 11-06-2022 Patient encounter procedure LAMBERTO MCKEON DO [facility] Start: 09-21-2022 End: 09-21-[address] Stiven Rangel Work Phone: [facility] Work Phone: Start: 09-21-2022 End: 09-21-[address] Stiven Rangel Work Phone: [facility]-Laboratory Start: 09-17-2022 Non-patient / Non-visit Dr. Stiven Rangel Work Phone: [facility] Start: 09-17-2022 End: 09-17-2022 Admission to same day surgery center Dr. Stiven Rangel Work Phone: [facility]-Endoscopy Start: 09-17-2022 End: 09-17-[address] Stiven Rangel Work Phone: [facility] Work Phone: Start: 07-22-2022 End: 07-22-[address] Stiven Rangel Work Phone: [facility] Start: 07-06-2022 End: 07-06-[address] Stiven Rangel Work Phone: [facility] Start: 06-05-2022 Non-patient / Non-visit Dr. Stiven Rangel Work Phone: [facility] Start: 06-04-[address] Mono [facility] Start: 06-03-2022 End: 06-03-[address] Stiven Ragnel Work Phone: [facility] Start: 05-27-2022 End: 05-27-[address] Stiven Rangel Work Phone: [facility] Start: 05-20-2022 End: 05-20-[address] Stiven Rangel Work Phone: [facility] Start: 04-16-2022 End: 04-16-[address] Damon Garrett Work Phone: [facility] Work Phone: Start: 04-16-2022 End: 04-16-[address] Damon Garrett Work Phone: [facility] Start: 04-16-2022 Non-patient / Non-visit Dr. Damon Garrett Work Phone: [facility] Start: 04-16-[address] Dam[facility] Garrett [facility] Start: 04-10-2022 End: 04-10-2022 Admission to same day surgery center Dr. Jerome Benjamin [facility] Start: 03-13-2022 End: 03-13-[address] Jerome Benjamin Work Phone: [facility]-Cat Scan, [facility] Start: 03-12-2022 End: 03-12-[address] Jerome Benjamin Work Phone: [facility]-Nuclear Medicine, [facility] Start: 03-05-2022 End: 03-05-[address] Jerome Benjamin Work Phone: [facility] Start: 02-12-2022 End: 02-12-2022 Patient encounter procedure [facility]-Laboratory, Specimen Start: 12-01-2021 End: 12-01-2021 Patient encounter procedure STIVEN RANGEL MD [facility] Procedures Date Procedure Procedure Detail Performing Clinician Start: 01-23-2025 Assay of prostate sp ecific antigen total Dr. Lamberto Mckeon DO Work Phone: Comment on above: This test was perfor med using the [employer] tPSA method. Measured values of a patient sample can vary depending on the testing procedure used. PSA values determined on patient samples by different testing procedures cannot be used interchangeably. If there is a change in PSA assays while monitoring therapy, sequential testing should be performed to confirm baseline values. Start: 11-02-2024 Assay of prostate sp ecific antigen total Dr. Lamberto Mckeon DO Work Phone: Comment on above: This test was perfor med using the [employer] tPSA method. Measured values of a patient sample can vary depending on the testing procedure used. PSA values determined on patient samples by different testing procedures cannot be used interchangeably. If there is a change in PSA assays while monitoring therapy, sequential testing should be performed to confirm baseline values. Start: 09-17-[address] Stiven Rangel Work Phone: Start: 04-16-2022 MRI of pelvis with contrast Dr. Damon Garrett Work Phone: Start: 04-10-2022 Space OAR (Not Applicable) Dr. Jerome Benjamin Work Phone: Start: 03-13-2022 Computed tomography of abdomen and pelvis with contrast Dr. Jerome Benjamin Work Phone: Start: 03-12-2022 Radionuclide whole b misti bone study Dr. 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 Murdock, open exc ision Start: 07-11-2009 Cataract (morphologi c abnormality) STIVEN RANGEL MD Start: 08-30-1996 Mass of neck (finding) STIVEN RANGEL MD Comment on above: excision, right Start: 08-30-1977 Arthroscopy STIVEN JACKMAN MD Comment on above: heel spurs Plan of Treatment Date Care Activity Detail Author Start: 09-17-2022 Patient discharge [facility] Start: 04-10-2022 Anesthesia anorectal procedure ANESTH ANORECTAL SURGERY [facility] Work Phone: Start: 04-10-2022 Plmt interstitial dev radiat tx prostate 1/mult PLACE RT DEVICE/MARKER PROS [facility] Work Phone: Start: 04-10-2022 Transperineal plmt biodegradable matrl 1/engraver hand hard metals njx TPRNL PLMT BIODEGRDABL MATRL [facility] Work Phone: Start: 04-10-2022 Patient discharge [facility] Work Phone: Start: 04-10-2022 Ambulation without limitation [facility] Work Phone: Start: 04-10-2022 Medication education [facility] Work Phone: Start: 04-10-2022 Taking patient vital signs [facility] Work Phone: Start: 04-10-2022 [facility] Work Phone: Colonoscopy [facility] Patient referral [facility] Work Phone: Prostate specific an tigen measurement [facility] Prostate specific an tigen measurement [facility] Payers Date Payer Category Payer Medicare [id number] 2022 Self-pay [id number] 2008 Medicare [id number] 2006 Medicare [id number] 291 [id number] 1941 Unknown [id number] 2.16.8 [id number] 1941 Unknown [id number] 2.16.8 [id number] 1941 Unknown [id number] 2.16.8 [id number] 1941 Unknown [id number] 2.16.8 [id number] 1941 Unknown [id number] 2.16.8 [id number] Unknown [id number] 2.16.8 [id number] Unknown [id number] 2.16.8 [id number] Unknown [id number] 2.16.8 [id number] Unknown [id number] 2.16.8 [id number] Unknown [id number] 2.16.8 [id number] Unknown [id number] 2.16.8 [id number] Unknown [id number] 2.16.8 [id number] Social History Date Type Detail Facility Start: 09-11-2019 End: 10-01-2022 Tobacco smoking status Ex-smoker (finding) [facility] Start: 1940 Sex Assigned At Male A [facility] Start: 03-05-2022 End: 10-01-2022 Tobacco smoking status NMIS Unknown if ever smoked [facility] Sexual Orientation [facility] Start: 02-22-2019 Sex Male (finding) [facility] Medical Equipment Procedure Code Equipment Code Equipment Origin al Text Equipment Identifier Dates MARKER,FIDUCIAL GOLD FDA Star t: 04-10-2022 MARKER,FIDUCIAL GOLD FDA Star t: 04-10-2022 MARKER,FIDUCIAL GOLD FDA Star t: 04-10-2022 SPACE OAR,DASHAWN 10ML FDA Start: 04-10-2022 MARKER,FIDUCIAL GOLD FDA Star t: 04-10-2022 MARKER,FIDUCIAL GOLD FDA Star t: 04-10-2022 MARKER,FIDUCIAL GOLD FDA Star t: 04-10-2022 SPACE OAR,DASHAWN 10ML FDA Start: 04-10-2022 MARKER,FIDUCIAL GOLD FDA Star t: 04-10-2022 MARKER,FIDUCIAL GOLD FDA Star t: 04-10-2022 MARKER,FIDUCIAL GOLD FDA Star t: 04-10-2022 SPACE OAR,DASHAWN 10ML FDA Start: 04-10-2022 MARKER,FIDUCIAL GOLD FDA Star t: 04-10-2022 MARKER,FIDUCIAL GOLD FDA Star t: 04-10-2022 MARKER,FIDUCIAL GOLD FDA Star t: 04-10-2022 SPACE OAR,DASHAWN 10ML FDA Start: 04-10-2022 MARKER,FIDUCIAL GOLD FDA Star t: 04-10-2022 MARKER,FIDUCIAL GOLD FDA Star t: 04-10-2022 MARKER,FIDUCIAL GOLD FDA Star t: 04-10-2022 SPACE OAR,DASHAWN 10ML FDA Start: 04-10-2022 MARKER,FIDUCIAL GOLD FDA Star t: 04-10-2022 MARKER,FIDUCIAL GOLD FDA Star t: 04-10-2022 MARKER,FIDUCIAL GOLD FDA Star t: 04-10-2022 SPACE OAR,DASHAWN 10ML FDA Start: 04-10-2022 Goals Date Patient Goal Desired Activity /State Mental Status Date Assessment Result Facility 09-17-2022 Cognitive function Voice/Name [facility] Work Phone: 04-10-2022 Cognitive function Voice/Name [facility] Work Phone: Clinical Notes 09-17-2022 to 11-02-2024 Note Date & Type Note Facility 11-02-2024 Evaluation note Diagnosis Onset Date Resolution Primary malignant neoplasm of prostate with high risk of recurrence due to acute November 02 1:41pm [facility] Work Phone: 1(123) 785-435807-10-2024 Note. MICRO - Microbiology PROCEDURE: Urine Culture [*1] SOURCE: Urine, Clean Catch BODY SITE: COLLECTED DATE/TIME: 03/06/2024 16:53 EDT RECEIVED DATE/TIME: 03/06/2024 19:40 EDT START DATE/TIME: 03/06/2024 19:40 EDT FREE TEXT SOURCE: FINAL REPORTS Final Report [] Verified Date/Time/Personnel: 03/08/2024 07:39 EDT <10,000 cfu/ml. No Significant growth. Sensitivity not indicated. PRELIMINARY REPORTS Preliminary Report [] Verified Date/Time/Personnel: 03/07/2024 07:37 EDT No growth to date Performing Locations *1: This test was performed at: [facility], [address] [place] [address], [phone] , [facility] ([place])11-06-2022 Note ORIGINAL EXAMINATION: BONE DENSITOMETRY 11/06/2022 2:24 pm TECHNIQUE: A bone density dual x-ray absorptiometry (DEXA) scan was performed of the lumbar spine and left hip. COMPARISON: None. HISTORY: ORDERING SYSTEM PROVIDED HISTORY: Reason for Exam: Osteoporosis Screening FINDINGS: T Score Left Femoral Neck: -1.8 Left Femoral Neck: 0.686 (g/cm2) T Score Left Hip: -1.0 Left Hip: 0.877 (g/cm2) T Score Lumbar Spine: 0.8 Lumbar Spine: 1.182 (g/cmd2) FRAX: 10 year fracture risk assessment Major osteoporotic fracture: 10% Hip fracture: 4.7% IMPRESSION: Osteopenia by WHO criteria. *By the World Health Organization criteria: (Comparing with young normal sex matched population) - Normal: T-score at or above -1 SD (standard deviation) - Osteopenia: T-score between -1 and -2.5 SD - Osteoporosis: T-score at or below -2.5 SD Interpreted by: Alin Montoya DO Preliminary Report By: Alin Montoya DO Electronically signed By Alin Montoya DO Dictated Date: 11/06/2022 2:42:43 PM Prelim Date: 11/06/2022 2:43:29 PM Sign Date: 11/06/2022 2:43:29 PM Ordering Provider: [facility]03-10-2023 Note ORIGINAL EXAMINATION: BONE DENSITOMETRY 11/06/2022 2:24 pm TECHNIQUE: A bone density dual x-ray absorptiometry (DEXA) scan was performed of the lumbar spine and left hip. COMPARISON: None. HISTORY: ORDERING SYSTEM PROVIDED HISTORY: Reason for Exam: Osteoporosis Screening FINDINGS: T Score Left Femoral Neck: -1.8 Left Femoral Neck: 0.686 (g/cm2) T Score Left Hip: -1.0 Left Hip: 0.877 (g/cm2) T Score Lumbar Spine: 0.8 Lumbar Spine: 1.182 (g/cmd2) FRAX: 10 year fracture risk assessment Major osteoporotic fracture: 10% Hip fracture: 4.7% IMPRESSION: Osteopenia by WHO criteria. *By the World Health Organization criteria: (Comparing with young normal sex matched population) - Normal: T-score at or above -1 SD (standard deviation) - Osteopenia: T-score between -1 and -2.5 SD - Osteoporosis: T-score at or below -2.5 SD Interpreted by: Alin Montoya DO Preliminary Report By: Alin Montoya DO Electronically signed By Alin Montoya DO Dictated Date: 11/06/2022 2:42:43 PM Prelim Date: 11/06/2022 2:43:29 PM Sign Date: 11/06/2022 2:43:29 PM Ordering Provider: LAMBERTO [facility]01-19-2023 Procedure [facility] Future App[facility]ments Appointment Date:12/10/2021 10:05:00 AM Scheduled Provider:STIVEN RANGEL MD Location:[facility] Appointment Type: OV [facility] Evaluation + Plan note Future Appointments Appointment Date:04/20/2023 02:00:00 PM Scheduled Provider:LAMBERTO MCKEON DO Location:[facility] Appointment Type: OV [facility] Evaluation + Plan note Future Appointments Appointment Date:05/12/2023 03:15:00 PM Scheduled Provider:LAMBERTO MCKEON DO Location:[facility] Appointment Type: OV Diagnostic Tests Pending * LDL-Cholesterol, Direct 05/11/23 Future Scheduled Tests Laboratory* Albumin/Creatinine Ratio, Random Urine 05/10/23 [facility] Evaluation + Plan note Future Appointments Appointment Date:06/02/2024 03:00:00 PM Scheduled Provider:LAMBERTO MCKEON DO Location:[facility] Appointment Type:[facility] Future Scheduled Tests Laboratory* LDL-Cholesterol, Direct 05/12/24 * Thyroid Stimulating Hormone 05/12/24 * A1C Hemoglobin 05/12/24 * Complete Blood Count 03/06/24 * Complete Blood Count 05/12/24 * Lipid Profile 05/12/24 * Albumin/Creatinine Ratio, Random Urine 05/12/24 * Albumin/Creatinine Ratio, Random Urine 05/10/23 * Complete Metabolic Panel 03/06/24 * Complete Metabolic Panel 05/12/24 Radiology* XR Spine Lumbar W/Obliques 4 Views 03/06/24 [facility] Evaluation + Plan note Future Appointments Appointment Date:06/02/2024 03:00:00 PM Scheduled Provider:LAMBERTO MCKEON DO Location:[facility] Appointment Type:[facility] Medicare Future Scheduled Tests Laboratory* Complete Blood Count 03/06/24 * Albumin/Creatinine Ratio, Random Urine 05/12/24 * Complete Metabolic Panel 03/06/24 Radiology* XR Spine Lumbar W/Obliques 4 Views 03/06/24 [facility] Evaluation + Plan note Future Appointments Appointment Date:01/12/2025 02:00:00 PM Scheduled Provider:LAMBERTO MCKEON DO Location:[facility] Appointment Type:[facility] Future Scheduled Tests Laboratory* Complete Blood Count 03/06/24 * Complete Metabolic Panel 03/06/24 Radiology* XR Spine Lumbar W/Obliques 4 Views 03/06/24 [facility] evaluation noteNo assessment information available [facility] Work Phone: evaluation note* Diagnosis Onset Date Resolution Status [id number] acute [facility] Work Phone: evaluation note* Diagnosis Onset Date Resolution Status [id number] acute [id number] acute [id number] acute Blood in stool [facility] Work Phone: Evaluation note* Diagnosis Onset Date Resolution Status [id number] acute [id number] acute Blood in stool [facility] Work Phone: History and physical note Author Orestes Friend [facility] September 17, 2022 10:46am Note Date/Time September 17, 2022 1 0:46am [facility] Medical Records Department [address] [place] [address] History & Physical Exam 09/17/22 1045 MR#: [id number] Acct: [id number] Name: RIMA GRACE Rep #:[id number] : 1940 82 From: Orestes Friend DO PCP: Dr. Lamberto Mckeon, DO Status[place] Location: [place] [address] History and Physical Date of Admission: 09/17/22 RIMA GRACE, is a 82 M who presents to the office today for referred by radiation oncologist Dr Benjamin for rectal bleeding that occurred during his radiation therapy for high risk prostate cancer. He completed radiation therapy in early May 2022. He had diarrhea during the therapy, and some bright red blood per rectum. He report hx of external hemorrhoid that disappeared after placement of spacer organ at risk gel matrix and gold markers in 03/2022. Pt reports the diarrhea has resolved, and he hasn't had any further blood per rectum. No melena. No constipation. His last colonoscopy 20+ yrs ago, recalls having a polyp. Denies nausea, vomiting, dysphagia, heartburn, acid reflux, abd pain. ROS Const Constitutional: No fatigue ENT ENT: No difficulty swallowing Gastro GI: Positive for diarrhea and heartburn; No abdominal pain, belching, bloating, change in bowel habits, change in stool character, coffee ground emesis, constipation, cramping, difficulty swallowing, feeling full early, excessive flatus, incontinent of stools, Vomiting blood/hematemesis, Blood in stool, loose stools, Black,tarry stools, nausea/dyspepsia, pain with swallowing, vomiting or other Musc Musculoskeletal: Positive for back pain and Arthritis; No joint pain Skin Skin: No yellowing of the eye or itchy eyes Psych Psychiatric: Positive for anxiety and No depression Endo Endocrine: No fatigue Aller/Imm Allergy/Immunologic: No itchy eyes Theodore/Lymp Hematologic/Lymphatic: No easy bleeding or easy bruising Exam Const General: cooperative and comfortable Nutritional Appearance: overweight Orientation: alert, awake and oriented x3 Eyes Sclera: sclerae normal Resp Effort & Inspection: normal respiratory effort GI Inspection: obesity Palpation: soft, no masses and nontender Quality Reporting Tobacco Screening ([facility] 138) Smoking Status: Former smoker Assessment and Plan Assessment and Plan (1) Blood in stool: ?Status:?Acute ?Plan: 82 yr old male with hx of blood per rectum while having diarrhea during radiation therapy for high risk prostate cancer. He completed XRT, diarrhea and blood per rectum have resolved. He remains on ADT. We will schedule him for colonoscopy with Dr Bro w/ janeth f/u 2 wks later. I have examined the patient and the H&P has been reviewed. There are no clinicalchanges since date of exam. 09/17/22 1046 <Electronically signed by Orestes Bro DO> Cosigner Signature (if applicable): CC: Dr. 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 Reason for Visit [id number] Chief Complaint 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 GEL AND GOLD MARKERS PLACEMENT Reason for Visit [id number] Chief Complaint 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 GEL AND GOLD MARKERS PLACEMENT [facility] PROSTATE CA Reason for Visit [id number] Chief Complaint OTV, rectal bleeding OTV otv [facility] Amb Documentation 1 month f/u post RT Consult Reason for Visit [id number] Blood in stool Chief Complaint otv [facility] Amb Documentation 1 month f/u post RT Consult Reason for Visit [id number] Blood in stool Chief Complaint 6 month f/u prostate Reason for Visit [id number] Chief Complaint Admit Date 4 MONTH F/U PROSTATE, PSA PRIOR October 1:41pm [facility] November 02, 2024 2:00 pm Reason for Visit Admit Date 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 due to November 02, 2024 1:41pm Advance Directives No Advanced Directives Records Found Advance Directive Response Recorded Date/ Time Name of Medical Power of Lure Maker POJames leannacathy Ramirez April 06, 2022 12:13pm Living Will Yes April 06, 2022 12:13pm Power of Lure Maker Yes April 06 12:13pm Advance Directive Response Recorded Date/ Time Name of Medical Power of Lure Maker ERIC September 11, 2022 3:12pm Living Will Yes September 11 3:12pm Power of Lure Maker Yes September 11, 2022 3:12pm Advance Directive Response Recorded Date/ Time Living Will Yes September 11 4:12pm Power of Lure Maker Yes September 11, 2022 4:12pm Advance Directive Response Recorded Date/ Time Living Will Yes September 11 3:12pm Power of Lure Maker Yes September 11, 2022 3:12pm Advance Directive Response Recorded Date/ Time Living Will Yes April 06, 2022 12:13pm Do you have a Healthcare Power of Lure Maker? Yes April 06, 2022 12:13pm Summary Purpose Family History No Family History Records Found Additional Source Comments Care Team (unrecognized sect ion and content) Team Status: Active Member Role Status Dates Dr. Stiven Rangel MD Family Provider Active Dr. Lamberto Mckeon DO Primary Care Provider Active Team Status: Inactive Member Role Status Dates Dr. Stiven Rangel MD Primary Care Provider, Referri ng Provider Active Dr. Jerome Benjamin DO Attending Provider Active Team Status: Inactive Member Role Status Dates Dr. Stievn Rangel MD Primary Care Provider Active Dr. Jerome Benjamin DO Attending Provider, Referring P rovider Active Team Status: Inactive Member Role Status Dates Dr. Stiven Rangel MD Primary Care Provider, Referri ng Provider Active Florence Castellanos PLANER STONE, PLANER STONE-C Attending Provider Active Team Status: Active Member Role Status Dates Dr. Stiven Rangel MD Primary Care Provider Active Dr. Jerome Benjamin DO Attending Provider Active Team Status: Active Member Role Status Dates Dr. Orestes Bro DO Attending Provid er, Referring Provider, Other Provider Active Dr. Lamberto Mckeon DO Primary Care Provider Active Team Status: Active Member Role Status Dates Dr. Jerome Sourav , DO Attending Provider, Referring P rovider Active Dr. Stiven Rangel MD Primary Care Provider Active Team Status: Inactive Member Role Status Dates Dr. Orestes Bro , Attending Provider, Referring Provider Active Dr. Lamberto Mckeon DO Primary Care Provider Active Team Status: Inactive Member Role Status Dates Dr. Lamberto Mckeon DO Primary Care Provider Active Dr. Damon Garrett MD Attending Provider, Referr ing Provider Active Team Status: Inactive Member Role Status Dates Dr. Jerome Benjamin DO Attending Provider Active Dr. Lamberto Mckeon DO Primary Care Provider Active Team Status: Inactive Member Role Status Dates Dr. Lamberto Mckeon DO Primary Care Provider, Referrin g Provider Active Dr. Jerome Benjamin DO Attending Provider Active Team Status: Inactive Member Role Status Dates Dr. Lamberto Mckeon DO Primary Care Provider Active Fabiola Raleigh Attending Provider, Referring Provide r Active Team Status: Inactive Member Role Status Dates Dr. Lamberto Mckeon DO Primary Care Provider Active Fabiola Raleigh Attending Provider, Referring Provide r Active Dr. Jerome Benjamin DO Other Provider Active Team Status: Active Member Role Status Dates Dr. Lamberto Mckeon DO Primary Care Provider Active Team Status: Inactive Member Role Status Dates Dr. Lamberto Mckeon DO Primary Care Provider Active Start: November 02, 2024 End: November 02, 2024 Dr. Lamberto Mckeon DO Referring Provider Active Start: November 02, 2024 End: November 02, 2024 Dr. Jerome Benjamin DO Attending Provider Active Start: November 02, 2024 End: November 02, 2024 Team Status: Active Member Role Status Dates Dr. Jerome Benjamin DO Attending Provider Active Start: November 02, 2024 Dr. Jerome Benjamin DO Referring Provider Active Start: November 02, 2024 Dr. Lamberto Mckeon DO Primary Care Provider Active Start: November 02, 2024 Team Status: Inactive Member Role Status Dates Dr. Lamberto Mckeon DO Primary Care Provider Active Start: January 23, 2025 End: January 23, 2025 Dr. Damon Garrett MD Attending Provider Active Start: January 23, 2025 End: January 23, 2025 Dr. Damon Garrett MD Referring Provider Active Start: January 23, 2025 End: January 23, 2025 Goals (unrecognized section and content) Goals may be documented in a n alternate section Care Team (unrecognized sect ion and content) Care Team Personnel Name: LAMBERTO MCKEON DO Position: P4 Physician - Primary Care Member Role: Primary Care Physician Address: Address: [address], [place] [address] Care Team Related Persons Name: ERIC JOHNS (unrecognized sect ion and content) No Status Records FoundNo Status Records FoundNo Status Records Found INFORMATION SOURCE (unrecogn ized section and content) DATE CREATED AUTHOR 03/14/2024 [facility] ([place]) DATE CREATED AUTHOR AUTHOR'S ORGANIZ ATION 01/10/[address] [facility] DATE CREATED AUTHOR AUTHOR'S ORGANIZ ATION 01/29/2025 [facility] FOR RECORDS PERTAINING TO PATIENTS WHO ARE OR HAVE BEEN ENROLLED IN A CHEMICAL DEPENDENCY/SUBSTANCEABUSE PROGRAM, SOME INFORMATION MAY BE OMITTED. This clinical summary was aggregated from multiple sources. Caution should be exercised in using it in the provision of clinical care. This summary normalizes information from multiple sources, and as a consequence, information in this document may materially change the coding, format and clinical context of patient data. In addition, data may be omitted in some cases. CLINICAL DECISIONS SHOULD BE BASED ON THE PRIMARY CLINICAL RECORDS. [employer] provides no warranty or guarantee of the accuracy or completeness of information in this document.
--- NOTE | 2025-01-31 12:24 | STRESSREP ---
Stress Test Report Date: 01/31/2025 Procedure: Pharmacologic stress nuclear imaging study Indications: Dyspnea on exertion Consent: Per the patient Procedure: The patient underwent pharmacologic (Regadenoson 0.4mg ) evaluation with a peak heart rate of 104 beats per minute (75%predicted maximal heart rate) and a peak blood pressure of 130/72 mmHg. The baseline ECG demonstrated atrial fibrillation. The peak pharmacologic ECG failed to show any ischemic changes. Baseline atrial fibrillation noted. There was no complaint of chest discomfort during pharmacologic infusion or recovery. The patient was injected with 14.7 millicuries of technetium 99m Cardiolite and subsequently rest SPECT Cardiolite nuclear imaging was obtained in the horizontal long, vertical long, and short axis views. The patient underwent pharmacologic (Regadenoson) evaluation. The patient was injected with 44.8 millicuries of technetium 99m Cardiolite and subsequently stress SPECT Cardiolite nuclear imaging was obtained in the horizontal long, vertical long, and short axis views. A gated Cardiolite study at peak stress was obtained. The examination was stopped secondary to completion of protocol. Rest and stress SPECT Cardiolite nuclear imaging status post realignment, normalization, and attenuation correction demonstrate a very small reversible apical perfusion defect suggestive of mild ischemia. There is end systolic thickening and brightening. The gated Cardiolite study demonstrates myocardial thickening and inward wall motion. The reported LVEF is 62%. Impression: 1. Pharmacologic (Regadenoson) evaluation 2. Peak pharmacologic ECG with no ischemic changes. . 3. Baseline rhythm atrial fibrillation.. 5. Small reversible apical perfusion defect suggestive of mild apical ischemia comprising less than 5% of the myocardium. 6. The gated Cardiolite study reports an LVEF of 62%. This note was generated with [employer] software. It may contain incorrect words, spelling, and punctuation that were not noted in checking the note before signing.
== END | disposition home or self-care (01) ==
DX: I10 Essential (primary) hypertension (principal); E78.2 Mixed hyperlipidemia; R06.09 Other forms of dyspnea
CPT/HCPCS: 78452; 93017; A9500; A4216; J2785